=== PATIENT | female | born 1965 | race Caucasian/White ===

== ENCOUNTER 2024-03-26 16:00 | Outpatient (CLI) | payer BC, SELFPAY ==
--- NOTE | 2024-03-26 16:01 | MR_ITS ---
FINAL REPORT CLINICAL HISTORY: lumbar spinal pain COMPARISON: None FINDINGS: Multiplanar MR imaging of the lumbar spine was performed without contrast. On the sagittal T2-weighted images, disc degeneration is seen at multiple levels. There is mild anterolisthesis of L2 on L3, and L4 on L5. There is no evidence of fracture. No bony mass is identified. The conus has an unremarkable appearance. L1-2: An annular bulge is present with facet arthropathy. There is mild left neural foraminal narrowing. L2-3: An annular bulge is present with facet arthropathy. There is a small left foraminal disc protrusion, with mild left neural foraminal narrowing. L3-4: An annular bulge is present with facet arthropathy. There is mild bilateral neural foraminal narrowing. L4-5: An annular bulge is present with facet arthropathy. There is moderate bilateral neural foraminal narrowing. L5-S1: An annular bulge is present. There is no significant canal stenosis or neural foraminal narrowing. IMPRESSION: Multilevel degenerative disc disease and spondylosis as described. Reviewed, Interpreted and Dictated by Ferny Gan III, MD Transcribed by Desire Barreto Authenticated and . [facility]
== END 2024-03-26 23:59 | disposition home or self-care (01) ==
LOC: RAD 16:01
PROVIDERS: PCP Nurse Practitioner Family; Visit Provider Nurse Practitioner Family
DX: M54.50 Low back pain, unspecified (principal); G89.29 Other chronic pain
CPT/HCPCS: 72148

== ENCOUNTER 2024-03-27 14:46 | Outpatient (POV) | payer BC, SELFPAY ==
--- NOTE | 2024-03-27 15:15 | A.OFFVIS_ITS ---
HPI Data of Consult Patient: new to practice Consult date: 03/27/24 Requesting Physician: Ann Marie Costa APRN Primary Care Provider: Sobia Mcneil APRN Consult Narrative Reason for consult: Low back pain History of present illness: Ms. Barnes is a 58 year old female who presents today as a new patient. She is a referral from Kavita Acharya's office. Today she rates her pain an 8 out of 10. Patient states her pain is all throughout her low back with radiating symptoms into primarily her right leg however she will occasionally have left leg symptoms. Patient states this is been going on for years since an injury where she fell down the steps in 1997. Patient does describe her pain as an aching, throbbing sensation with numbness and tingling into her extremities. Patient does state that she has tried [id number] medications such as Tylenol and ibuprofen along with heat and ice and topicals with no additional relief. Patient states that she has had injections in the past but it has been years and that they did typically help however were very temporary. Patient has also had physical therapy and had no additional relief. Patient is currently going to chiropractor therapy and feels like this may be aggravating her symptoms. Patient does go once a week and has gone for more than 4 weeks. Patient is interested in any help we may be able to provide. She states the pain is constant and interferes with her activities of daily living such as cooking or cleaning or even simple sleeping. Patient does state that she has been tried on Flexeril however it did not really seem to do well and that she slept for hours on end. Patient states that it was even cut in half when she took it. Patient denies any surgery history. 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 Patient is not on any scheduled medications. Her Grabiel has been reviewed and is appropriate. CC: Ann Marie Costa APRN [facility] Disclaimer: The information contained in this section may have been updated after the patient was seen, as this information can be updated by other users. Medical History Back pain Alpha thalassaemia minor Hidradenitis suppurativa of multiple sites Cardiac abnormality Hypertension Surgical History History of tubal ligation [place] teeth extracted Family History Family/Other PVCs (premature ventricular contractions) Congestive heart failure Hypertension Diabetes Coronary artery disease Thyroid disorder Kidney disease Social History Smoking Status: Former smoker alcohol intake: current alcohol intake frequency: a few times a week substance use type: denies use current occupational status: retired Travel in the last 8 weeks: Inside the [place] Review of Systems Review of Systems Review of systems:: pertinent systems reviewed and negative unless documented below Review of systems (narrative): Review of Systems: General: No recent weight changes, no fever, no sleep disturbances Respiratory: No cough, no shortness of air, no recurring pulmonary infections Cardiovascular/peripheral vascular: No chest pain, no palpitations, no edema, no shortness of breath Gastrointestinal: No new onset incontinence, normal bowel movements reported Genitourinary: No new onset incontinence Musculoskeletal: Low back pain, right leg pain Psychiatric: [Normal mood/affect] Neurological: [Denies weakness in extremities], [denies balance issues] Meds Home Medications and Allergies Home Medications Medication Instructions Recorded Confirmed Type krill oil 500 mg capsule mg PO 07/27/23 03/05/24 History multivitamin with minerals-folic tab PO 07/27/23 03/05/24 History acid 0.4 mg tablet (One Daily Womens 50 Plus) omeprazole 20 mg capsule,delayed 20 mg PO DAILY 07/27/23 03/05/24 History release rhubarb root extract 4 mg tablet mg PO 07/27/23 03/05/24 History (Estroven Complete Menopause Relief) atenolol 50 mg tablet See Rx Instructions .Route 01/07/24 03/05/24 Rx .COMPLEX #90 tabs lisinopril 10 mg tablet See Rx Instructions .Route 01/22/24 03/05/24 Rx .COMPLEX #90 tabs trazodone 50 mg tablet See Rx Instructions .Route 02/04/24 03/05/24 Rx .COMPLEX #30 tabs cyclobenzaprine 10 mg tablet 10 mg PO TID PRN muscle spasm #30 03/05/24 03/05/24 Rx tabs methylprednisolone 4 mg tablets in 4 mg PO DAILY #21 tabs 03/05/24 03/05/24 Rx a dose pack (Medrol (Michael)) New Prescriptions to Start Prescriptions: Allergies Allergy/AdvReac Type Severity Reaction Status Date / Time bacitracin Allergy Verified 03/05/24 13:34 [From Neosporin ([id number])] diphenhydramine Allergy Verified 03/05/24 13:34 [From Benadryl] neomycin Allergy Verified 03/05/24 13:34 [From Neosporin ([id number])] polymyxin B Allergy Verified 03/05/24 13:34 [From Neosporin ([id number])] prochlorperazine Allergy Verified 03/05/24 13:34 [From Compazine] promethazine [From Phenergan] Allergy Verified 03/05/24 13:34 tetracycline Allergy Verified 03/05/24 13:34 metals AdvReac Uncoded 07/27/23 11:49 Objective Narrative: Physical Exam: General: Alert and oriented x3, no acute distress, pleasant and cooperative Lungs: Respirations even and unlabored, symmetrical chest expansion Eyes: PERRL Musculoskeletal: Flexion and extension of lumbar [spine] somewhat guarded secondary to pain, [antalgic gait noted] Neurological: Speech clear, no gross sensory deficit Assessment and Plan *Assessment and plan (1) Chronic lower back pain: Status: Acute Qualifiers: Back pain laterality: bilateral Sciatica presence: without sciatica Qualified Code(s): M54.50 - Low back pain, unspecified; G89.29 - Other chronic pain Category: Medical Code(s): M54.50 - Low back pain, unspecified; G89.29 - Other chronic pain (2) Lumbar radiculopathy: Status: Acute Category: Medical Code(s): M54.16 - Radiculopathy, lumbar region (3) Lumbar spinal stenosis: Status: Acute Qualifiers: Neurogenic claudication status: with neurogenic claudication Qualified Code(s): M48.062 - Spinal stenosis, lumbar region with neurogenic claudication Category: Medical Code(s): M48.061 - Spinal stenosis, lumbar region without neurogenic claudication Plan Low back and legs with limited range of motion. I did review over her latest MRI that was done yesterday however the written report is not in the computer system yet. Patient did seem to have stenosis most prominent at the L4-L5 level. Due to her overall pain with numbness and tingling into her extremities and the initial imaging I do believe she would be a beneficial candidate of a lumbar epidural steroid injection. Risk and benefits were discussed with the patient and she would like to proceed forward with this plan of care. I will also order the patient a compounded cream. I have discussed with patient in future we could possibly try additional muscle relaxers such as baclofen 5 mg twice a day as needed and provide a 14-day supply of this medication. Patient is agreeable. Patient will be scheduled for an LESI L4-L5 under fluoroscopy. Patient has tried and failed conservative treatment including current chiropractor therapy for longer than 4 weeks and continued at home exercise and stretching for longer than 6. Patient is experiencing significant pain throughout her patient has been instructed to contact the clinic with any concerns before the next appointment. Dr. Mccormick has reviewed this note and agrees with this plan of care. This note was dictated using voice recognition software and make contain errors or omissions.
[2024-03-27 15:30] VITALS: BP 159/93; PULSE 83; RESP 18; O2SAT 96; BMI 44.4
== END 2024-03-27 23:59 | disposition home or self-care (01) ==
LOC: SC.PAIN 14:47
PROVIDERS: PCP Nurse Practitioner Family; Visit Provider Nurse Practitioner Family
DX: M54.50 Low back pain, unspecified (principal); G89.29 Other chronic pain; M54.16 Radiculopathy, lumbar region; M48.062 Spinal stenosis, lumbar region with neurogenic claudication
CPT/HCPCS: 99202; G0463

== ENCOUNTER 2024-04-15 09:28 | Day surgery (SDC) | payer BC, SELFPAY ==
[2024-04-15 09:53] VITALS: BP 126/73; PULSE 65; RESP 16; TEMP 36.4; O2SAT 98; BMI 44.4
[2024-04-15] MEDS: methylPREDNISolone ACETATE 80MG/ML VIAL 80 MG (09:58)
--- NOTE | 2024-04-15 09:59 | EXP.PAIN.PRO ---
Procedure Date: 04/15/24 Time: 09:50 Anesthesiologist:: Jose Miguel Rutherford CRNA Complications:: None Pre-procedure Diagnosis:: Degenerative disc lumbar spine multilevels. Lumbar radiculopathy. Post-procedure Diagnosis:: Same. Indications for Procedure:: Patient is a very pleasant 58-year-old female comes our clinic today for lumbar epidural steroid injection at L4-5 level. Patient describes low back pain as constant, dull, aching. Right hip and leg radicular symptoms. She rates her pain 8/10. Procedure Details:: Procedure: Lumbar epidural steroid injection under fluoroscopy Informed consent was obtained and the risks and benefits of the procedure were explained to the patient. The patient was taken to the procedure room and noninvasive monitors placed, including noninvasive blood pressure cuff and pulse oximeter. The back was viewed using C-arm Fluoroscopy and prepped using Chloraprep as a cleansing solution and the L4-L5 interspace was palpated. Skin and subcutaneous tissues were anesthetized using lidocaine 1.5% and a 25-gauge needle. After this, an 18-gauge Touhy epidural needle was placed into the L4-L5 interspace and advanced using fluoroscopic guidance and loss of resistance to air until the epidural space was encountered. After confirmation of needle placement in the epidural space, with dye, a solution containing normal saline, 3 mL and Depo-Medrol 80 mg were incrementally injected into the lumbar epidural space. The patient tolerated the procedure well with no complications. The patient was observed in the Pain Clinic and then discharged home neurologically intact. Plan and Disposition:: Patient was discharged without incident.
[2024-04-15 10:02] VITALS: BP 118/53; PULSE 60; RESP 20; O2SAT 98
[2024-04-15 10:03] VITALS: BP 118/53; PULSE 60; RESP 20; O2SAT 97
[2024-04-15 10:06] VITALS: BP 145/71; PULSE 60; RESP 16; O2SAT 96
== END 2024-04-15 10:07 | disposition home or self-care (01) ==
PROVIDERS: PCP Nurse Practitioner Family; Visit Provider Nurse Anesthetist, Certified Registered
DX: M54.16 Radiculopathy, lumbar region (principal)
CPT/HCPCS: 62323; J1010

== ENCOUNTER 2024-05-08 11:22 | Outpatient (POV) | payer BC, SELFPAY ==
[2024-05-08 11:23] VITALS: BP 135/85; PULSE 84; RESP 18; O2SAT 98; BMI 44.4
--- NOTE | 2024-05-08 12:09 | EXP.PAIN.SOA ---
[facility] Disclaimer: The information contained in this section may have been updated after the patient was seen, as this information can be updated by other users. Medical History Back pain Alpha thalassaemia minor Hidradenitis suppurativa of multiple sites Cardiac abnormality Hypertension Surgical History History of tubal ligation [place] teeth extracted Family History Family/Other PVCs (premature ventricular contractions) Congestive heart failure Hypertension Diabetes Coronary artery disease Thyroid disorder Kidney disease Social History Smoking Status: Former smoker alcohol intake: current alcohol intake frequency: a few times a week substance use type: denies use current occupational status: other Travel in the last 8 weeks: None PM Subjective & Objective Subjective Subjective:: Patient is a pleasant 58-year-old female who presents today for follow-up of lumbar epidural steroid injection L4-L5 on 04/15/2024. Today she rates her pain a 5 out of 10. Patient states that she has at least had 50% improvement. She denies any new trauma or injury. She does state that it is still fairly constant or with increased activity however the pain is definitely not as severe as it had been. Patient states she felt like she could do However they did go on vacation and when she came back she had to unpack things and they were doing a home remodel and so she had to do more things around the house causing increased pain. Patient was ordered compounded cream and she states that she really did not notice a whole lot improvement on her back and that the baclofen we ordered a 5 mg was too strong for her and completely had her sleep throughout the night. Patient is asking if we could try something different. She does also state that she continues to have chronic leg cramps more prominent at night. Her Grabiel has been reviewed and is appropriate. Review of Systems: General: No recent weight changes, no fever, no sleep disturbances Respiratory: No cough, no shortness of air, no recurring pulmonary infections Cardiovascular/peripheral vascular: No chest pain, no palpitations, no edema, no shortness of breath Gastrointestinal: No new onset incontinence, normal bowel movements reported Genitourinary: No new onset incontinence Musculoskeletal: Leg pain Psychiatric: [Normal mood/affect] Neurological: [Denies weakness in extremities], [denies balance issues] Pain at rest (0-10 scale): 5 Objective Objective:: Physical Exam: General: Alert and oriented x3, no acute distress, pleasant and cooperative Lungs: Respirations even and unlabored, symmetrical chest expansion Eyes: PERRL Musculoskeletal: Flexion and extension of lumbar [spine] somewhat guarded secondary to pain, [antalgic gait noted] Neurological: Speech clear, no gross sensory deficit Has patient had previous pain injection?: Yes Percent improvement in pain since last injection: 50% Conservative treatment options previously tried: Home exercise plan Length of treatment: Longer than 6 weeks Meds Home Medications and Allergies Home Medications ?Medication ?Instructions ?Recorded ?Confirmed ?Type krill oil 500 mg capsule 500 mg PO DIRECTED SUPPLIMENT 07/27/23 04/15/24 History multivitamin with minerals-folic 0.4 tab PO DAILY SUPPLIMENT 07/27/23 04/15/24 History acid 0.4 mg tablet (One Daily Womens 50 Plus) omeprazole 20 mg capsule,delayed 20 mg PO DAILY 07/27/23 04/15/24 History release rhubarb root extract 4 mg tablet 4 mg PO DIRECTED SUPPLIMENT 07/27/23 04/15/24 History (Estroven Complete Menopause Relief) atenolol 50 mg tablet See Rx Instructions .Route 01/07/24 04/15/24 Rx .COMPLEX #90 tabs lisinopril 10 mg tablet See Rx Instructions .Route 01/22/24 04/15/24 Rx .COMPLEX #90 tabs cyclobenzaprine 10 mg tablet 10 mg PO TID PRN muscle spasm #30 03/05/24 04/15/24 Rx tabs trazodone 50 mg tablet See Rx Instructions .Route 05/05/24 Rx .COMPLEX #30 tabs New Prescriptions to Start Prescriptions: Allergies Allergy/AdvReac Type Severity Reaction Status Date / Time bacitracin Allergy Verified 04/15/24 09:53 [From Neosporin ([id number])] diphenhydramine Allergy Verified 04/15/24 09:53 [From Benadryl] neomycin Allergy Verified 04/15/24 09:53 [From Neosporin ([id number])] polymyxin B Allergy Verified 04/15/24 09:53 [From Neosporin ([id number])] prochlorperazine Allergy Verified 04/15/24 09:53 [From Compazine] promethazine [From Phenergan] Allergy Verified 04/15/24 09:53 tetracycline Allergy Verified 04/15/24 09:53 metals AdvReac Uncoded 07/27/23 11:49 Assessment and Plan *Assessment and plan (1) Lumbar radiculopathy: Status: Acute Category: Medical Code(s): M54.16 - Radiculopathy, lumbar region Plan I discussed with the patient that she may benefit from ropinirole for her leg cramps at night. I will send in a 2-week dose of this medication and will also change her muscle relaxer to methocarbamol 500 mg twice daily as needed. Patient was counseled to take these medications at different times in order to make sure that she does not have a reaction to 1 or the other. Patient will return to clinic in 1 month for reevaluation of symptoms and plan of care. Patient has been instructed to contact the clinic with any concerns before the next appointment. Dr. Mccormick has reviewed this note and agrees with this plan of care. This note was dictated using voice recognition software and make contain errors or omissions. All injections are used with Lidocaine or Bupivacaine and Depo Medrol.
== END 2024-05-08 23:59 | disposition home or self-care (01) ==
PROVIDERS: PCP Nurse Practitioner Family; Visit Provider Nurse Practitioner Family
DX: M54.16 Radiculopathy, lumbar region (principal); Z87.891 Personal history of nicotine dependence
CPT/HCPCS: 99212; G0463

== ENCOUNTER 2024-05-27 15:37 | Outpatient (CLI) | payer BC, SELFPAY ==
[2024-05-27 19:45] LABS: Hemoglobin A1C 5.9 % (4.0-6.0)
[2024-05-27 23:08] LABS: Vitamin B12 476 pg/mL (239-931)
== END 2024-05-27 23:59 | disposition home or self-care (01) ==
LOC: LAB.DROPOF 05-28 13:13
PROVIDERS: PCP Nurse Practitioner Family; Visit Provider Nurse Practitioner Family
DX: R63.5 Abnormal weight gain (principal); Z68.41 Body mass index [BMI] 40.0-44.9, adult
CPT/HCPCS: 82607; 82728; 83036; 84443

== ENCOUNTER 2024-06-09 13:03 | Outpatient (POV) | payer BC, SELFPAY ==
[2024-06-09 13:23] VITALS: BP 138/62; PULSE 64; RESP 16; O2SAT 96; BMI 44.4
--- NOTE | 2024-06-09 14:28 | EXP.PAIN.SOA ---
[facility] Disclaimer: The information contained in this section may have been updated after the patient was seen, as this information can be updated by other users. Medical History Back pain Alpha thalassaemia minor Hidradenitis suppurativa of multiple sites Cardiac abnormality Hypertension Surgical History History of tubal ligation [place] teeth extracted Family History Family/Other PVCs (premature ventricular contractions) Congestive heart failure Hypertension Diabetes Coronary artery disease Thyroid disorder Kidney disease Social History Smoking Status: Former smoker alcohol intake: current alcohol intake frequency: a few times a week substance use type: denies use current occupational status: unemployed Travel in the last 8 weeks: None PM Subjective & Objective Subjective Subjective:: Patient is a pleasant 58-year-old female who presents today for follow-up. Today she rates her pain an 8 out of 10. Patient states she has been experiencing worsening pain all along her low back and bilateral hips with the right side being worse than the left. Patient denies any new trauma or injury. She does state this is an aching, throbbing pain with pressure that does interfere with her ability perform activities of daily living such as cooking and cleaning. Patient did previously have a lumbar epidural injection back at the beginning of April that did provide more than 50% improvement. Patient is interested in additional injection therapy. Patient was tried on baclofen 5 mg however she felt like that was too strong so at her last visit she was given methocarbamol 500 mg twice a day as needed. Patient states she has not yet needed to take this medicine. Her Grabiel has been reviewed and is appropriate. Review of Systems: General: No recent weight changes, no fever, no sleep disturbances Respiratory: No cough, no shortness of air, no recurring pulmonary infections Cardiovascular/peripheral vascular: No chest pain, no palpitations, no edema, no shortness of breath Gastrointestinal: No new onset incontinence, normal bowel movements reported Genitourinary: No new onset incontinence Musculoskeletal: Low back pain, bilateral hip pain Psychiatric: [Normal mood/affect] Neurological: [Denies weakness in extremities], [denies balance issues] Pain at rest (0-10 scale): 8 Objective Objective:: Physical Exam: General: Alert and oriented x3, no acute distress, pleasant and cooperative Lungs: Respirations even and unlabored, symmetrical chest expansion Eyes: PERRL Musculoskeletal: Flexion and extension of lumbar [spine] somewhat guarded secondary to pain, [antalgic gait noted] point tenderness along bilateral SIs with positive bilateral Gaurang's, Shital's, Gaenslen's, compression and distraction exam Neurological: Speech clear, no gross sensory deficit Has patient had previous pain injection?: No Conservative treatment options previously tried: Home exercise plan Length of treatment: Longer than 12 weeks Meds Home Medications and Allergies Home Medications ?Medication ?Instructions ?Recorded ?Confirmed ?Type krill oil 500 mg capsule 500 mg PO DIRECTED SUPPLIMENT 07/27/23 06/09/24 History multivitamin with minerals-folic 0.4 tab PO DAILY SUPPLIMENT 07/27/23 06/09/24 History acid 0.4 mg tablet (One Daily Womens 50 Plus) omeprazole 20 mg capsule,delayed 20 mg PO DAILY 07/27/23 06/09/24 History release rhubarb root extract 4 mg tablet 4 mg PO DIRECTED SUPPLIMENT 07/27/23 06/09/24 History (Estroven Complete Menopause Relief) atenolol 50 mg tablet See Rx Instructions .Route 01/07/24 06/09/24 Rx .COMPLEX #90 tabs lisinopril 10 mg tablet See Rx Instructions .Route 01/22/24 06/09/24 Rx .COMPLEX #90 tabs trazodone 50 mg tablet See Rx Instructions .Route 05/05/24 06/09/24 Rx .COMPLEX #30 tabs methocarbamol 500 mg tablet 500 mg PO BID #28 tabs 05/08/24 06/09/24 Rx ondansetron HCl 4 mg tablet 4 mg PO Q8H PRN nausea and 05/27/24 06/09/24 Rx vomiting #30 tabs semaglutide (weight loss) 0.25 0.25 mg (0.5 mL) SQ WEEKLY 30 days 05/27/24 06/09/24 Rx mg/0.5 mL subcutaneous pen #2.5 mL injector (Sarika) New Prescriptions to Start Prescriptions: Allergies Allergy/AdvReac Type Severity Reaction Status Date / Time bacitracin Allergy Verified 05/27/24 14:25 [From Neosporin ([id number])] diphenhydramine Allergy Verified 05/27/24 14:25 [From Benadryl] neomycin Allergy Verified 05/27/24 14:25 [From Neosporin ([id number])] polymyxin B Allergy Verified 05/27/24 14:25 [From Neosporin ([id number])] prochlorperazine Allergy Verified 05/27/24 14:25 [From Compazine] promethazine [From Phenergan] Allergy Verified 05/27/24 14:25 tetracycline Allergy Verified 05/27/24 14:25 metals AdvReac Uncoded 05/27/24 14:25 Assessment and Plan *Assessment and plan (1) Bilateral sacroiliitis: Status: Acute Category: Medical Code(s): M46.1 - Sacroiliitis, not elsewhere classified Plan Patient is experiencing significant pain throughout her low back and bilateral hips with limited range of motion. Patient did have point tenderness along her bilateral SIs and a positive bilateral Gaurang's, Shital's, Gaenslen's, compression and distraction exam. I did discuss with the patient that she may benefit from bilateral SI injections. Risk and benefits were discussed with the patient and she would like to proceed forward with this plan of care. Patient has continued at home stretching exercise for longer than 6 weeks. Patient will be scheduled for bilateral SI injections under fluoroscopy. Patient has been instructed to contact the clinic with any concerns before the next appointment. Dr. Mccormick has reviewed this note and agrees with this plan of care. This note was dictated using voice recognition software and make contain errors or omissions. All injections are used with Lidocaine or Bupivacaine and Depo Medrol.
== END 2024-06-09 23:59 | disposition home or self-care (01) ==
LOC: SC.PAIN 13:04
PROVIDERS: PCP Nurse Practitioner Family; Visit Provider Nurse Practitioner Family
DX: M46.1 Sacroiliitis, not elsewhere classified (principal); Z87.891 Personal history of nicotine dependence; Z73.89 Other problems related to life management difficulty
CPT/HCPCS: 99212; G0463

== ENCOUNTER 2024-07-01 12:50 | Day surgery (SDC) | payer BC, SELFPAY ==
[2024-07-01 13:28] VITALS: BP 128/68; PULSE 67; RESP 16; TEMP 36.4; O2SAT 97; BMI 43.2
[2024-07-01 13:34] VITALS: BP 110/41; PULSE 66; RESP 18; O2SAT 96
[2024-07-01] MEDS: methylPREDNISolone ACETATE 80MG/ML VIAL 80 MG (13:34)
[2024-07-01] MEDS: LIDOCAINE 1% 5ML PF VIAL 5 ML (13:34)
[2024-07-01] MEDS: BUPIVACAINE 0.25% 10ML INJ 25 MG IJ (13:34)
[2024-07-01 13:35] VITALS: BP 110/41; PULSE 65; RESP 18; O2SAT 96
--- NOTE | 2024-07-01 13:40 | P.PCN_ITS ---
Procedure Date: 07/01/24 Time: 13:30 Anesthesiologist:: Jose Miguel Rutherford CRNA Complications:: None Pre-procedure Diagnosis:: Bilateral sacroiliitis Post-procedure Diagnosis:: Same Indications for Procedure:: Patient is a very pleasant 58-year-old female comes our clinic today for bilateral sacroiliac joint injections of cortisone and local anesthetic. She describes low lumbar back pain off the midline as constant, dull, aching. She reports having difficulty transitioning from sitting to standing. Difficulty with ambulation. Difficulty with sitting. She rates her pain 7/10. Procedure Details:: Procedure: Bilateral sacroiliac joint injections under fluoroscopy Informed consent was obtained and the risks and benefits of the procedure were explained to the patient.~ The patient was taken to the procedure room and noninvasive monitors were placed including a noninvasive blood pressure cuff and pulse oximeter.~ The patient was placed prone on the procedure table. Both hips were cleansed using Betadine as a cleansing solution. C-arm fluoroscopy was used to view the right sacroiliac joint.~ The skin and subcutaneous tissues were anesthetized using lidocaine 1.5% and a 25-gauge needle.~ After this, a 22-gauge spinal needle was inserted under fluoroscopic guidance into the inferior aspect of the right sacroiliac joint.~ Omnipaque dye was injected and good spread was seen throughout the joint.~ After this, approximately 5 mL of bupivacaine, 0.25% and Depo-Medrol, 40 mg was incrementally injected into the right sacroiliac joint. We then moved to the left sacroiliac joint.~ The skin and subcutaneous tissues were anesthetized using lidocaine 1.5% and a 25-gauge needle.~ After this, a 22- gauge spinal needle was inserted under fluoroscopic guidance into the inferior aspect of the left sacroiliac joint.~ Omnipaque dye was injected and good spread was seen throughout the joint. After this, approximately 5 mL of bupivacaine, 0.25% and Depo-Medrol, 40 mg was incrementally injected into the left sacroiliac joint.~ The patient tolerated the procedure well with no complications. The patient was observed in the Pain Clinic and then was discharged home neurologically intact. Plan and Disposition:: Patient was discharged without incident.
[2024-07-01 13:52] VITALS: BP 107/62; PULSE 64; RESP 18; O2SAT 98
== END 2024-07-01 13:52 | disposition home or self-care (01) ==
PROVIDERS: PCP Nurse Practitioner Family; Visit Provider Nurse Anesthetist, Certified Registered
DX: M46.1 Sacroiliitis, not elsewhere classified (principal)
CPT/HCPCS: 27096; G0260; J1010

== ENCOUNTER 2024-08-04 11:31 | Outpatient (POV) | payer BC, SELFPAY ==
[2024-08-04 11:44] VITALS: BP 156/83; PULSE 71; O2SAT 96; BMI 41.9
--- NOTE | 2024-08-04 11:53 | EXP.PAIN.SOA ---
[facility] Disclaimer: The information contained in this section may have been updated after the patient was seen, as this information can be updated by other users. Medical History Back pain Alpha thalassaemia minor Hidradenitis suppurativa of multiple sites Cardiac abnormality Hypertension Surgical History History of tubal ligation [place] teeth extracted Family History Family/Other PVCs (premature ventricular contractions) Congestive heart failure Hypertension Diabetes Coronary artery disease Thyroid disorder Kidney disease Social History Smoking Status: Former smoker alcohol intake: current alcohol intake frequency: a few times a week substance use type: denies use current occupational status: unemployed Travel in the last 8 weeks: None PM Subjective & Objective Subjective Subjective:: Patient is a pleasant 58-year-old female who presents today for follow-up of bilateral SI injections on 07/01/2024. Today she rates her pain an 8 out of 10. Patient denies any new trauma or injury. Patient states that she really did not feel like these injections helped. Patient states she is still continuing to have low back pain and now that she is having an intense stabbing sensation that runs down her entire lower extremities to her ankles. Patient states that the pain is interfering with her ability perform activities of daily living such as cooking and cleaning. Patient did previously have an epidural that did provide significant relief of at least 50% lasting around 2 weeks. Patient does state that she is open to additional injections such as these however the last ones did seem like they hurt worse. Patient has tried and failed conservative therapy including continued at home stretching exercise for longer than 12 weeks. Patient is currently managed with methocarbamol 500 mg twice a day from our office however she does not take this on a regular basis. Her Grabiel has been reviewed and is appropriate. Review of Systems: General: No recent weight changes, no fever, no sleep disturbances Respiratory: No cough, no shortness of air, no recurring pulmonary infections Cardiovascular/peripheral vascular: No chest pain, no palpitations, no edema, no shortness of breath Gastrointestinal: No new onset incontinence, normal bowel movements reported Genitourinary: No new onset incontinence Musculoskeletal: Low back pain, bilateral leg pain Psychiatric: [Normal mood/affect] Neurological: [Denies weakness in extremities], [denies balance issues] Pain at rest (0-10 scale): 8 Objective Objective:: Physical Exam: General: Alert and oriented x3, no acute distress, pleasant and cooperative Lungs: Respirations even and unlabored, symmetrical chest expansion Eyes: PERRL Musculoskeletal: Flexion and extension of lumbar [spine] somewhat guarded secondary to pain, [antalgic gait noted] Neurological: Speech clear, no gross sensory deficit Has patient had previous pain injection?: Yes Percent improvement in pain since last injection: Minimal Conservative treatment options previously tried: Home exercise plan Length of treatment: Longer than 12 weeks Meds Home Medications and Allergies Home Medications ?Medication ?Instructions ?Recorded ?Confirmed ?Type krill oil 500 mg capsule 500 mg PO DIRECTED SUPPLIMENT 07/27/23 08/04/24 History multivitamin with minerals-folic 0.4 tab PO DAILY SUPPLIMENT 07/27/23 08/04/24 History acid 0.4 mg tablet (One Daily Womens 50 Plus) omeprazole 20 mg capsule,delayed 20 mg PO DAILY 07/27/23 08/04/24 History release trazodone 50 mg tablet See Rx Instructions .Route 05/05/24 08/04/24 Rx .COMPLEX #30 tabs methocarbamol 500 mg tablet 500 mg PO BID #28 tabs 05/08/24 08/04/24 Rx ondansetron HCl 4 mg tablet 4 mg PO Q8H PRN nausea and 05/27/24 08/04/24 Rx vomiting #30 tabs atenolol 50 mg tablet See Rx Instructions .Route 07/07/24 08/04/24 Rx .COMPLEX #90 tabs lisinopril 10 mg tablet See Rx Instructions .Route 07/07/24 08/04/24 Rx .COMPLEX #90 tabs semaglutide (weight loss) 1 mg/0.5 1 mg (0.5 mL) SQ WEEKLY 30 days 07/30/24 08/04/24 Rx mL subcutaneous pen injector #2.5 mL New Prescriptions to Start Prescriptions: Allergies Allergy/AdvReac Type Severity Reaction Status Date / Time bacitracin Allergy Verified 07/30/24 13:00 [From Neosporin ([id number])] diphenhydramine Allergy Verified 07/30/24 13:00 [From Benadryl] neomycin Allergy Verified 07/30/24 13:00 [From Neosporin ([id number])] polymyxin B Allergy Verified 07/30/24 13:00 [From Neosporin ([id number])] prochlorperazine Allergy Verified 07/30/24 13:00 [From Compazine] promethazine [From Phenergan] Allergy Verified 07/30/24 13:00 tetracycline Allergy Verified 07/30/24 13:00 metals AdvReac Uncoded 07/30/24 13:00 Assessment and Plan *Assessment and plan (1) Lumbar radiculopathy: Status: Acute Category: Medical Code(s): M54.16 - Radiculopathy, lumbar region (2) Lumbar spinal stenosis: Status: Acute Qualifiers: Neurogenic claudication status: with neurogenic claudication Qualified Code(s): M48.062 - Spinal stenosis, lumbar region with neurogenic claudication Category: Medical Code(s): M48.061 - Spinal stenosis, lumbar region without neurogenic claudication Plan Patient is experiencing significant pain throughout her low back with radiating tingling and stabbing sensations that go down into her bilateral lower extremities. I did discuss with the patient that she may benefit from repeat lumbar epidural steroid injection. Risk and benefits were discussed with patient and she would like to proceed forward with this plan of care. Patient has tried and failed conservative therapy including continued home stretching exercise for longer than 12 weeks. Patient is not on any blood thinners. Patient will be scheduled for an LESI L4-L5 under fluoroscopy. Patient has been instructed to contact the clinic with any concerns before the next appointment. Dr. Mccormick has reviewed this note and agrees with this plan of care. This note was dictated using voice recognition software and make contain errors or omissions. All injections are used with Lidocaine or Bupivacaine and Depo Medrol.
== END 2024-08-04 23:59 | disposition home or self-care (01) ==
LOC: SC.PAIN 11:33
PROVIDERS: PCP Nurse Practitioner Family; Visit Provider Nurse Practitioner Family
DX: M54.16 Radiculopathy, lumbar region (principal); M48.062 Spinal stenosis, lumbar region with neurogenic claudication; Z73.89 Other problems related to life management difficulty
CPT/HCPCS: 99212; G0463

== ENCOUNTER 2024-08-19 08:52 | Day surgery (SDC) | payer BC, SELFPAY ==
[2024-08-19 09:05] VITALS: BP 129/74; PULSE 68; RESP 16; TEMP 36.7; O2SAT 95; BMI 41.9
[2024-08-19] MEDS: methylPREDNISolone ACETATE 80MG/ML VIAL 80 MG (09:24)
[2024-08-19 09:25] VITALS: BP 144/72; PULSE 70; RESP 18; O2SAT 96
[2024-08-19 09:26] VITALS: BP 144/72; PULSE 72; RESP 18; O2SAT 96
--- NOTE | 2024-08-19 09:31 | EXP.PAIN.PRO ---
Procedure Date: 08/19/24 Time: 09:15 Anesthesiologist:: Jose Miguel Rutherford CRNA Complications:: None Pre-procedure Diagnosis:: Degenerative disc lumbar spine multilevels. Lumbar radiculopathy. Post-procedure Diagnosis:: Same. Indications for Procedure:: Patient is a pleasant 58-year-old female who comes our clinic today for lumbar epidural steroid injection at the L4-5 level. Patient describes low lumbar back pain as constant, dull, aching. Patient also reports bilateral hip and leg radicular symptoms. She rates her pain 7/10. Procedure Details:: Procedure: Lumbar epidural steroid injection under fluoroscopy Informed consent was obtained and the risks and benefits of the procedure were explained to the patient. The patient was taken to the procedure room and noninvasive monitors placed, including noninvasive blood pressure cuff and pulse oximeter. The back was viewed using C-arm Fluoroscopy and prepped using Chloraprep as a cleansing solution and the L4-L5 interspace was palpated. Skin and subcutaneous tissues were anesthetized using lidocaine 1.5% and a 25-gauge needle. After this, an 18-gauge Touhy epidural needle was placed into the L4-L5 interspace and advanced using fluoroscopic guidance and loss of resistance to air until the epidural space was encountered. After confirmation of needle placement in the epidural space, with dye, a solution containing normal saline, 3 mL and Depo-Medrol 80 mg were incrementally injected into the lumbar epidural space. The patient tolerated the procedure well with no complications. The patient was observed in the Pain Clinic and then discharged home neurologically intact. Plan and Disposition:: Patient was discharged without incident.
[2024-08-19 09:33] VITALS: BP 114/72; PULSE 69; RESP 16; O2SAT 99
== END 2024-08-19 09:33 | disposition home or self-care (01) ==
PROVIDERS: PCP Nurse Practitioner Family; Visit Provider Nurse Anesthetist, Certified Registered
DX: M51.16 Intervertebral disc disorders with radiculopathy, lumbar region (principal)
CPT/HCPCS: 62323; J1010

== ENCOUNTER 2024-09-03 09:26 | Outpatient (POV) | payer BC, SELFPAY ==
--- NOTE | 2024-09-03 09:53 | A.OFFVIS_ITS ---
[facility] Disclaimer: The information contained in this section may have been updated after the patient was seen, as this information can be updated by other users. Medical History Back pain Alpha thalassaemia minor Hidradenitis suppurativa of multiple sites Cardiac abnormality Hypertension Surgical History History of tubal ligation [place] teeth extracted Family History Family/Other PVCs (premature ventricular contractions) Congestive heart failure Hypertension Diabetes Coronary artery disease Thyroid disorder Kidney disease Social History Smoking Status: Former smoker alcohol intake: current alcohol intake frequency: a few times a week substance use type: denies use current occupational status: other Travel in the last 8 weeks: None PM Subjective & Objective Subjective Subjective:: Patient is a pleasant 58-year-old female who presents today for follow-up of lumbar epidural steroid injection L4-L5 on 08/19/2024. She rates her pain today a 7 out of 10. Patient states that she really did not have significant relief with these injections. She states only about maybe 20%. She does states she continues to have the chronic low back pain that radiates across to her back and that she has been experiencing more cramps in her lower calves and legs however it has moved into the front and inner lee area. Patient states that this pain is most prominent just at night and does interfere with her ability to sleep. Patient does state that the chronic low back pain does interfere with her ability to perform activities of daily living such as cooking and cleaning. Patient does state that the pain is worse with certain positions or movements. Patient states that she just got back from vacation and that this may have aggravated the overall symptoms. Patient is currently managed with methocarbamol 500 mg twice a day from our office however she only uses these as needed. Her Grabiel has been reviewed and is appropriate. Review of Systems: General: No recent weight changes, no fever, no sleep disturbances Respiratory: No cough, no shortness of air, no recurring pulmonary infections Cardiovascular/peripheral vascular: No chest pain, no palpitations, no edema, no shortness of breath Gastrointestinal: No new onset incontinence, normal bowel movements reported Genitourinary: No new onset incontinence Musculoskeletal: Low back pain, lower leg cramping Psychiatric: [Normal mood/affect] Neurological: [Denies weakness in extremities], [denies balance issues] Pain at rest (0-10 scale): 7 Objective Objective:: Physical Exam: General: Alert and oriented x3, no acute distress, pleasant and cooperative Lungs: Respirations even and unlabored, symmetrical chest expansion Eyes: PERRL Musculoskeletal: Flexion and extension of lumbar [spine] somewhat guarded secondary to pain, [antalgic gait noted] positive Kemps test Neurological: Speech clear, no gross sensory deficit FINDINGS: Multiplanar MR imaging of the lumbar spine was performed without contrast. On the sagittal T2-weighted images, disc degeneration is seen at multiple levels. There is mild anterolisthesis of L2 on L3, and L4 on L5. There is no evidence of fracture. No bony mass is identified. The conus has an unremarkable appearance. L1-2: An annular bulge is present with facet arthropathy. There is mild left neural foraminal narrowing. L2-3: An annular bulge is present with facet arthropathy. There is a small left foraminal disc protrusion, with mild left neural foraminal narrowing. L3-4: An annular bulge is present with facet arthropathy. There is mild bilateral neural foraminal narrowing. L4-5: An annular bulge is present with facet arthropathy. There is moderate bilateral neural foraminal narrowing. L5-S1: An annular bulge is present. There is no significant canal stenosis or neural foraminal narrowing. IMPRESSION: Multilevel degenerative disc disease and spondylosis as described. Reviewed, Interpreted and Dictated by Ferny Gan III, MD Transcribed by Desire Barreto Authenticated and . [facility] Has patient had previous pain injection?: Yes Percent improvement in pain since last injection: 20% Conservative treatment options previously tried: Home exercise plan Length of treatment: Longer than 12 weeks Meds Home Medications and Allergies Home Medications ?Medication ?Instructions ?Recorded ?Confirmed ?Type krill oil 500 mg capsule 500 mg PO DIRECTED SUPPLIMENT 07/27/23 08/25/24 History multivitamin with minerals-folic 0.4 tab PO DAILY SUPPLIMENT 07/27/23 08/25/24 History acid 0.4 mg tablet (One Daily Womens 50 Plus) omeprazole 20 mg capsule,delayed 20 mg PO DAILY 07/27/23 08/25/24 History release methocarbamol 500 mg tablet 500 mg PO BID #28 tabs 05/08/24 08/25/24 Rx ondansetron HCl 4 mg tablet 4 mg PO Q8H PRN nausea and 05/27/24 08/25/24 Rx vomiting #30 tabs atenolol 50 mg tablet See Rx Instructions .Route 07/07/24 08/25/24 Rx .COMPLEX #90 tabs lisinopril 10 mg tablet See Rx Instructions .Route 07/07/24 08/25/24 Rx .COMPLEX #90 tabs trazodone 50 mg tablet See Rx Instructions .Route 08/08/24 08/25/24 Rx .COMPLEX #30 tabs semaglutide (weight loss) 1 mg/0.5 1 mg (0.5 mL) SQ WEEKLY 30 days 08/25/24 08/25/24 Rx mL subcutaneous pen injector #2.5 mL New Prescriptions to Start Prescriptions: Allergies Allergy/AdvReac Type Severity Reaction Status Date / Time bacitracin (From Neosporin Allergy Verified 08/25/24 09:49 ([id number])) diphenhydramine (From Allergy Verified 08/25/24 09:49 Benadryl) neomycin (From Neosporin Allergy Verified 08/25/24 09:49 ([id number])) polymyxin B (From Neosporin Allergy Verified 08/25/24 09:49 ([id number])) prochlorperazine (From Allergy Verified 08/25/24 09:49 Compazine) promethazine (From Phenergan) Allergy Verified 08/25/24 09:49 tetracycline Allergy Verified 08/25/24 09:49 metals AdvReac Uncoded 08/25/24 09:49 Assessment and Plan *Assessment and plan (1) Lumbar facet arthropathy: Status: Acute Category: Medical Code(s): M47.816 - Spondylosis without myelopathy or radiculopathy, lumbar region (2) Lumbar spondylosis: Status: Acute Category: Medical Code(s): M47.816 - Spondylosis without myelopathy or radiculopathy, lumbar region Plan Patient is experiencing worsening pain throughout her low back with limited range of motion and a positive Kemps test today. I did discuss with the patient that due to this assessment finding being positive that she may benefit from lumbar medial branch blocks. Risk and benefits were discussed with patient and she would like to proceed forward with this plan of care. Patient has tried and failed conservative therapy including oral medications, heat and ice, topicals, previous physical therapy and continued at home stretching exercise for longer than 12 weeks. Patient was counseled that if these do provide significant improvement we will plan on repeating them with the plan to proceed forward with an RFA at a later date. I will also try a prescription of ropinirole 0.25 mg at bedtime with a 2-week supply to see if this does make a difference on her lower leg cramping she has been experiencing. Patient will be scheduled for a lumbar medial branch block bilaterally L3-L4 and L4-L5 under fluoroscopy. Patient has been instructed to contact the clinic with any concerns before the next appointment. Dr. Mccormick has reviewed this note and agrees with this plan of care. This note was dictated using voice recognition software and make contain errors or omissions. All injections are used with Lidocaine or Bupivacaine and Depo Medrol.
[2024-09-03 10:25] VITALS: BP 126/62; PULSE 77; RESP 18; O2SAT 95; BMI 40.6
== END 2024-09-03 23:59 | disposition home or self-care (01) ==
PROVIDERS: PCP Nurse Practitioner Family; Visit Provider Nurse Practitioner Family
DX: M47.816 Spondylosis without myelopathy or radiculopathy, lumbar region (principal); Z73.89 Other problems related to life management difficulty
CPT/HCPCS: 99212; G0463

== ENCOUNTER 2024-09-29 11:36 | Outpatient (RCR) | payer BC, SELFPAY | END 2024-09-29 23:59 | disposition home or self-care (01) | LOC: PT 11:36 | PROVIDERS: Visit Provider Nurse Practitioner Family | DX: M25.562 Pain in left knee (principal); S89.92XA Unspecified injury of left lower leg, initial encounter | CPT/HCPCS: 97760 ==

== ENCOUNTER 2024-09-29 12:13 | Outpatient (CLI) | payer BC, SELFPAY ==
--- NOTE | 2024-09-29 12:17 | XR_ITS ---
FINAL REPORT CLINICAL HISTORY: left hip pain, injury FINDINGS: LEFT HIP 3 views of the left hip are obtained. There is no acute fracture or dislocation. Visualized joint spaces are normally aligned. There is no acute soft tissue abnormality. IMPRESSION: No acute bony abnormality. Reviewed, Interpreted and Dictated by Lula Pathak MD Transcribed by Tara Bernard Authenticated and [facility]
--- NOTE | 2024-09-29 12:17 | XR_ITS ---
FINAL REPORT CLINICAL HISTORY: left knee pain, injury FINDINGS: LEFT KNEE: 3 views of the left knee obtained. There is no acute fracture or dislocation. The joint spaces are intact.. There is no soft tissue abnormality. IMPRESSION: No acute bony abnormality. Reviewed, Interpreted and Dictated by Lula Pathak MD Transcribed by Tara Bernard Authenticated and [facility]
== END 2024-09-29 23:59 | disposition home or self-care (01) ==
LOC: RAD 12:15
PROVIDERS: PCP Nurse Practitioner Family; Visit Provider Nurse Practitioner Family
DX: M25.552 Pain in left hip (principal); M25.562 Pain in left knee; S89.92XA Unspecified injury of left lower leg, initial encounter
CPT/HCPCS: 73502; 73564

== ENCOUNTER 2024-09-30 08:45 | Day surgery (SDC) | payer BC, SELFPAY ==
[2024-09-30 09:00] VITALS: BP 147/85; PULSE 81; RESP 16; TEMP 36.6; O2SAT 95; BMI 40.0
[2024-09-30 09:58] VITALS: BP 144/87; PULSE 70; RESP 18; O2SAT 96
[2024-09-30] MEDS: LIDOCAINE 1% 5ML PF VIAL 5 ML (09:58)
[2024-09-30] MEDS: methylPREDNISolone ACETATE 80MG/ML VIAL 80 MG (09:58)
[2024-09-30] MEDS: BUPIVACAINE 0.25% 10ML INJ 25 MG IJ (09:58)
[2024-09-30 09:59] VITALS: BP 144/87; PULSE 72; RESP 18; O2SAT 97
[2024-09-30 10:05] VITALS: BP 123/77; PULSE 76; RESP 16; O2SAT 98
--- NOTE | 2024-09-30 12:32 | EXP.PAIN.PRO ---
Procedure Date: 09/30/24 Time: 10:30 Anesthesiologist:: Jose Miguel Rutherford CRNA Complications:: None Pre-procedure Diagnosis:: Degenerative disc lumbar spine multilevels. Lumbar radiculopathy. Lumbar spondylosis. Multilevel lumbar facet arthropathy. Post-procedure Diagnosis:: Same. Indications for Procedure:: Patient is a very pleasant 58-year-old female who comes our clinic today for ROUND ONE of lumbar medial branch block/facet injections the L3-4 L4-5 level. Patient describes low lumbar back pain as constant, dull, aching. She reports having difficulty with lumbar flexion, extension, left and right rotation. Standing increases pain significantly. She rates her pain 7/10. Procedure Details:: Informed consent was obtained and the risk and benefits of the procedure was explained to the patient. Patient was taken to the procedure room where noninvasive monitors were placed, including noninvasive blood pressure cuff as well as pulse oximeter. The area over the lumbar spine was cleansed using chlorhexidine as a cleansing solution. I anesthetized the skin and subcutaneous tissues with 1% Lidocaine. I placed 22-gauge spinal needles into the facet joint/ medial branches of L3-4, L4-5 bilaterally. Needle placement was confirmed with fluoroscopy. After confirmation of needle placement, each site was injected with 1 mL of 1% lidocaine and 0.25 % Marcaine and 10 mg of Depo-Medrol. A total of 80 mg of depo medrol was used for bilateral medial branch blocks of [L3-L4, L4-L5 bilaterally. Patient tolerated the procedure without difficulty. There were no complications. Plan and Disposition:: Patient was discharged without incident.
== END 2024-09-30 10:05 | disposition home or self-care (01) ==
PROVIDERS: PCP Nurse Practitioner Family; Visit Provider Nurse Anesthetist, Certified Registered
DX: M47.816 Spondylosis without myelopathy or radiculopathy, lumbar region (principal); M51.369 Other intervertebral disc degeneration, lumbar region without mention of lumbar back pain or lower extremity pain
CPT/HCPCS: 64493; 64494; J1010

== ENCOUNTER 2024-10-22 09:12 | Outpatient (POV) | payer BC, SELFPAY ==
[2024-10-22 09:38] VITALS: BP 118/78; PULSE 80; RESP 14; O2SAT 96; BMI 39.5
--- NOTE | 2024-10-22 09:41 | EXP.PAIN.SOA ---
[facility] Disclaimer: The information contained in this section may have been updated after the patient was seen, as this information can be updated by other users. Medical History Back pain Alpha thalassaemia minor Hidradenitis suppurativa of multiple sites Cardiac abnormality Hypertension Surgical History History of tubal ligation [place] teeth extracted Family History Family/Other PVCs (premature ventricular contractions) Congestive heart failure Hypertension Diabetes Coronary artery disease Thyroid disorder Kidney disease Social History Smoking Status: Former smoker alcohol intake: current alcohol intake frequency: a few times a week substance use type: denies use current occupational status: other Travel in the last 8 weeks: None PM Subjective & Objective Subjective Subjective:: Patient is a pleasant 58-year-old female who presents today for follow-up of her first lumbar medial branch block bilaterally L3-L4 and L4-L5 under fluoroscopy. Today she rates her pain a 5 out of 10. She does state that she had at least 80% improvement on the first day following this procedure and was able to move around easier and even went and watched her grandkids. She states that it is still helping currently but would rated more of about 60% at this point. She does state however that following this procedure she ended up having a injury. She states she ended up stepping down on the dogs chew toy and that her left leg twisted and ended up having significant pain in the left hip and left knee. Patient is concerned she may have torn something however insurance denied her MRI of her left knee due to not having recent physical therapy. She does state that she is scheduled to start this coming up. Patient is prescribed compounded cream from our office along with methocarbamol 500 mg twice a day and was recently prescribed ropinirole 0.25 mg at bedtime for her leg cramps. Patient states that she did read in the fine print that the ropinirole and her omeprazole may have a interaction and did not know if there is any other medication that could be prescribed. Her Grabiel has been reviewed and is appropriate. Review of Systems: General: No recent weight changes, no fever, no sleep disturbances Respiratory: No cough, no shortness of air, no recurring pulmonary infections Cardiovascular/peripheral vascular: No chest pain, no palpitations, no edema, no shortness of breath Gastrointestinal: No new onset incontinence, normal bowel movements reported Genitourinary: No new onset incontinence Musculoskeletal: Left hip, left knee pain Psychiatric: [Normal mood/affect] Neurological: [Denies weakness in extremities], [denies balance issues] Pain at rest (0-10 scale): 5 Objective Objective:: Physical Exam: General: Alert and oriented x3, no acute distress, pleasant and cooperative Lungs: Respirations even and unlabored, symmetrical chest expansion Eyes: PERRL Musculoskeletal: Flexion and extension of left hip somewhat guarded secondary to pain, [antalgic gait noted] point tenderness along left greater trochanteric bursa Neurological: Speech clear, no gross sensory deficit Has patient had previous pain injection?: Yes Percent improvement in pain since last injection: 80% Conservative treatment options previously tried: Home exercise plan Length of treatment: Longer than 12 weeks Meds Home Medications and Allergies Home Medications ?Medication ?Instructions ?Recorded ?Confirmed ?Type krill oil 500 mg capsule 500 mg PO DIRECTED SUPPLIMENT 07/27/23 10/17/24 History multivitamin with minerals-folic 0.4 tab PO DAILY SUPPLIMENT 07/27/23 10/17/24 History acid 0.4 mg tablet (One Daily Womens 50 Plus) omeprazole 20 mg capsule,delayed 20 mg PO DAILY 07/27/23 10/17/24 History release methocarbamol 500 mg tablet 500 mg PO BID #28 tabs 05/08/24 10/17/24 Rx ondansetron HCl 4 mg tablet 4 mg PO Q8H PRN nausea and 05/27/24 10/17/24 Rx vomiting #30 tabs lisinopril 10 mg tablet See Rx Instructions .Route 07/07/24 10/17/24 Rx .COMPLEX #90 tabs trazodone 50 mg tablet See Rx Instructions .Route 08/08/24 10/17/24 Rx .COMPLEX #30 tabs ropinirole 0.25 mg tablet 0.25 mg PO HS #14 tabs 09/03/24 10/17/24 Rx atenolol 50 mg tablet 50 mg PO ONCE 30 days #30 tabs 09/22/24 10/17/24 Rx semaglutide (weight loss) 1.7 1.7 mg (0.75 mL) SQ WEEKLY 30 days 10/17/24 10/17/24 Rx mg/0.75 mL subcutaneous pen #3.75 mL injector New Prescriptions to Start Prescriptions: Allergies Allergy/AdvReac Type Severity Reaction Status Date / Time bacitracin (From Neosporin Allergy Verified 10/17/24 10:57 ([id number])) diphenhydramine (From Allergy Verified 10/17/24 10:57 Benadryl) neomycin (From Neosporin Allergy Verified 10/17/24 10:57 ([id number])) polymyxin B (From Neosporin Allergy Verified 10/17/24 10:57 ([id number])) prochlorperazine (From Allergy Verified 10/17/24 10:57 Compazine) promethazine (From Phenergan) Allergy Verified 10/17/24 10:57 tetracycline Allergy Verified 10/17/24 10:57 metals AdvReac Uncoded 10/17/24 10:57 Assessment and Plan *Assessment and plan (1) Left hip pain: Status: Acute Category: Medical Code(s): M25.552 - Pain in left hip (2) Left knee injury: Status: Acute Category: Medical Code(s): S89.92XA - Unspecified injury of left lower leg, initial encounter (3) Decreased range of motion of hip: Status: Acute Category: Medical Code(s): M25.659 - Stiffness of unspecified hip, not elsewhere classified (4) Lumbar facet arthropathy: Status: Acute Category: Medical Code(s): M47.816 - Spondylosis without myelopathy or radiculopathy, lumbar region Plan I did discuss with the patient that I would recommend trying her compounded cream on her hip and knee and that in future if this pain does not improve we can see about doing some injection therapy. Patient was also counseled that I was unaware of any interactions between the ropinirole and omeprazole and that I will look at other medication options. I did auto club travel counselor the patient to reach out to her local pharmacy and see if they could give more specific details on the interaction. Patient acknowledges understanding. Patient will follow-up with our clinic in 3 weeks for reevaluation of symptoms and plan of care. Patient has been instructed to contact the clinic with any concerns before the next appointment. Dr. Mccormick has reviewed this note and agrees with this plan of care. This note was dictated using voice recognition software and make contain errors or omissions. All injections are used with Lidocaine, Bupivacaine and Depo Medrol. Occasionally urine drug screen is needed to verify patient's compliance with our office pain contract. This is ordered based off specific treatments related to chronic pain with the potential to abuse certain medications.
== END 2024-10-22 23:59 | disposition home or self-care (01) ==
PROVIDERS: PCP Nurse Practitioner Family; Visit Provider Nurse Practitioner Family
DX: M25.552 Pain in left hip (principal); S89.92XA Unspecified injury of left lower leg, initial encounter; M25.659 Stiffness of unspecified hip, not elsewhere classified; M47.816 Spondylosis without myelopathy or radiculopathy, lumbar region; Z87.891 Personal history of nicotine dependence
CPT/HCPCS: 99212; G0463

== ENCOUNTER 2024-11-05 09:23 | Outpatient (CLI) | payer BC, SELFPAY | END 2024-11-05 23:59 | disposition home or self-care (01) | LOC: RAD 09:23 | PROVIDERS: PCP Nurse Practitioner Family; Visit Provider Nurse Practitioner Family | DX: M25.552 Pain in left hip (principal) ==

== ENCOUNTER 2024-11-12 09:15 | Outpatient (POV) | payer BC, SELFPAY ==
--- NOTE | 2024-11-12 09:47 | A.OFFVIS_ITS ---
[facility] Disclaimer: The information contained in this section may have been updated after the patient was seen, as this information can be updated by other users. Medical History Back pain Alpha thalassaemia minor Hidradenitis suppurativa of multiple sites Cardiac abnormality Hypertension Surgical History History of tubal ligation [place] teeth extracted Family History Family/Other PVCs (premature ventricular contractions) Congestive heart failure Hypertension Diabetes Coronary artery disease Thyroid disorder Kidney disease Social History Smoking Status: Former smoker alcohol intake: current alcohol intake frequency: a few times a week substance use type: denies use current occupational status: other Travel in the last 8 weeks: None PM Subjective & Objective Subjective Subjective:: Patient is a pleasant 59-year-old female who presents today for follow-up. Today she rates her pain a 8 out of 10. She denies any new injury or trauma. She does state that she has now started physical therapy the last couple of ti mes it has caused some worsening pain in her hip and low back. She states overall the knee is doing fairly okay and it is bothersome if she turns a certain way. Patient had had an injury in one of her last visits that initially started the knee pain and was tried to have imaging however was denied by insurance for not having recent physical therapy. Patient did previously have her first lumbar medial branch block bilaterally L3-L4 and L4-L5 that did provide initially at least 80% improvement. Patient does state that she feels like this is completely worn off now and that she is having significant pain throughout her low back. She states that bending and lifting are extreme and do interfere with her ability to perform activities of daily living such as cooking and cleaning. Patient does state that she would like to get scheduled for repeat injection as the last one did significantly help lower her overall pain and give improvement on a day-to-day basis. patient is prescribed compounded cream from our office along with methocarbamol 500 mg twice a day and ropinirole 0.25 mg at bedtime for her leg cramps. Her Grabiel has been reviewed and is appropriate. Review of Systems: General: No recent weight changes, no fever, no sleep disturbances Respiratory: No cough, no shortness of air, no recurring pulmonary infections Cardiovascular/peripheral vascular: No chest pain, no palpitations, no edema, no shortness of breath Gastrointestinal: No new onset incontinence, normal bowel movements reported Genitourinary: No new onset incontinence Musculoskeletal: Low back pain Psychiatric: [Normal mood/affect] Neurological: [Denies weakness in extremities], [denies balance issues] Pain at rest (0-10 scale): 8 Objective Objective:: Physical Exam: General: Alert and oriented x3, no acute distress, pleasant and cooperative Lungs: Respirations even and unlabored, symmetrical chest expansion Eyes: PERRL Musculoskeletal: Flexion and extension of lumbar [spine] somewhat guarded secondary to pain, [antalgic gait noted] positive Kemps test Neurological: Speech clear, no gross sensory deficit Has patient had previous pain injection?: No Conservative treatment options previously tried: Home exercise plan Length of treatment: Longer than 12 weeks and Physical Therapy Length of treatment: Ongoing Meds Home Medications and Allergies Home Medications ?Medication ?Instructions ?Recorded ?Confirmed ?Type krill oil 500 mg capsule 500 mg PO DIRECTED SUPPLIMENT 07/27/23 10/22/24 History multivitamin with minerals-folic 0.4 tab PO DAILY SUPPLIMENT 07/27/23 10/22/24 History acid 0.4 mg tablet (One Daily Womens 50 Plus) omeprazole 20 mg capsule,delayed 20 mg PO DAILY 07/27/23 10/22/24 History release methocarbamol 500 mg tablet 500 mg PO BID #28 tabs 05/08/24 10/22/24 Rx ondansetron HCl 4 mg tablet 4 mg PO Q8H PRN nausea and 05/27/24 10/22/24 Rx vomiting #30 tabs lisinopril 10 mg tablet See Rx Instructions .Route 07/07/24 10/22/24 Rx .COMPLEX #90 tabs ropinirole 0.25 mg tablet 0.25 mg PO HS #14 tabs 09/03/24 10/22/24 Rx atenolol 50 mg tablet 50 mg PO ONCE 30 days #30 tabs 09/22/24 10/22/24 Rx semaglutide (weight loss) 1.7 1.7 mg (0.75 mL) SQ WEEKLY 30 days 10/17/24 10/22/24 Rx mg/0.75 mL subcutaneous pen #3.75 mL injector trazodone 50 mg tablet See Rx Instructions .Route 11/10/24 Rx .COMPLEX #30 tabs New Prescriptions to Start Prescriptions: Allergies Allergy/AdvReac Type Severity Reaction Status Date / Time bacitracin (From Neosporin Allergy Verified 10/17/24 10:57 ([id number])) diphenhydramine (From Allergy Verified 10/17/24 10:57 Benadryl) neomycin (From Neosporin Allergy Verified 10/17/24 10:57 ([id number])) polymyxin B (From Neosporin Allergy Verified 10/17/24 10:57 ([id number])) prochlorperazine (From Allergy Verified 10/17/24 10:57 Compazine) promethazine (From Phenergan) Allergy Verified 10/17/24 10:57 tetracycline Allergy Verified 10/17/24 10:57 metals AdvReac Uncoded 10/17/24 10:57 Assessment and Plan *Assessment and plan (1) Left knee pain: Status: Acute Category: Medical Code(s): M25.562 - Pain in left knee (2) Left hip pain: Status: Acute Category: Medical Code(s): M25.552 - Pain in left hip (3) Lumbar spondylosis: Status: Acute Category: Medical Code(s): M47.816 - Spondylosis without myelopathy or radiculopathy, lumbar region (4) Lumbar facet arthropathy: Status: Acute Category: Medical Code(s): M47.816 - Spondylosis without myelopathy or radiculopathy, lumbar region Plan Patient is experiencing worsening pain in her low back with limited range of motion and a positive Kemps test. Patient was counseled that I do believe she would benefit from her second diagnostic lumbar medial branch block. Risk and benefits were discussed with the patient and she would like to proceed forward with this plan of care. Patient was counseled that if she does get significant relief with this we will proceed forward with the lumbar RFA at a later date. Patient acknowledges understanding. Patient has tried and failed conservative therapy including continued at home stretching exercise for longer than 12 weeks and between injections. Patient did have her first lumbar medial branch block that did provide 80% improvement and gave improved function. Patient getting prolonged relief for longer than 4 weeks with this injection. Patient will be scheduled for her second diagnostic lumbar medial branch block bilaterally L3-L4 and L4-L5 under fluoroscopy. Patient has been instructed to contact the clinic with any concerns before the next appointment. Dr. Mccormick has reviewed this note and agrees with this plan of care. This note was dictated using voice recognition software and make contain errors or omissions. All injections are used with Lidocaine, Bupivacaine and Depo Medrol. Occasionally urine drug screen is needed to verify patient's compliance with our office pain contract. This is ordered based off specific treatments related to chronic pain with the potential to abuse certain medications.
[2024-11-12 10:28] VITALS: BP 120/67; PULSE 76; RESP 14; O2SAT 97; BMI 39.4
== END 2024-11-12 23:59 | disposition home or self-care (01) ==
LOC: SC.PAIN 09:16
PROVIDERS: PCP Nurse Practitioner Family; Visit Provider Nurse Practitioner Family
DX: M25.562 Pain in left knee (principal); M25.552 Pain in left hip; M47.816 Spondylosis without myelopathy or radiculopathy, lumbar region; Z87.891 Personal history of nicotine dependence; Z73.89 Other problems related to life management difficulty
CPT/HCPCS: 99212; G0463

== ENCOUNTER 2024-11-13 11:00 | Outpatient (RCR) | payer BC, SELFPAY ==
--- NOTE | 2024-11-03 11:32 | HMH.PTOPEV ---
PT Outpatient Evaluation Rehab PT Outpatient Evaluation Start: 11/03/24 09:49 Freq: Status: Active Protocol: Document 11/03/24 09:50 EILEEN (Rec: 11/03/24 11:29 EILEEN [id number]) E-signed By Blanca Alcantara, PT Outpatient Therapy Subjective History Subjective History This is an initial physical therapy evaluation for 58 y/o, Selam Barnes, who presents with referral for PT consult d/t L hip pain. Pt reports she stepped on a dog toy and twisted her left leg. Pt felt instant L knee pain and L delayed hip pain. Pt reports her hip pain is more painful than her knee pain. Pt describes her knee pain as occasionally sharp and hip pain as a dull ache. Pt denies hearing any popping, clicking , or clunking during or after injury. Pt denies any prior hip or knee pain. Pt does have chronic LBP. Denies numbness or tingling but does report some weakness and instability in LLE. Imaging: Hip x-ray and knee x- ray 09/29: Clear from bony abnormality. Pt has an MRI scheduled on Sunday. PMH: Back pain, Alpha thalassaemia minor, Hidradenitis suppurativa of multiple sites, Cardiac abnormality, Hypertension New diagnosis of cancer in past 12 No months? Chief Complaint Pain,Gives out/Unstable Symptom Type Ache,Sharp,Dull,Stabbing Symptoms Relieved By Rest/Positioning Symptoms Aggravated By Standing,Physical Activity, Walking Prior Functional Limitations None Current Functional Limitations Lifting,Housework Symptom Description Constant but Variable Level of pain today (0-10) 5 Pain scale - at its best (0-10) 3 Pain scale - at its worst (0-10) 8 Hip/Knee Eval Gait Observation General Gait Pattern Observation Antalgic Gait Assistive Device Assistive Devices None / NA Palpation Tenderness left Knee Palpation Finding Tenderness Knee Palpation Overall Comment 2/4 TTP lateral joint line and GT Hip Palpation Findings Tenderness MMT Hip Flexion Strength Grade 4- Good- Hip Abduction Strength Grade 4 Good Hip Adduction Strength Grade 4 Good Hip Extension Strength Grade 4 Good Knee Extension Strength Grade 4- Good- Knee Flexion Strength Grade 4- Good- ROM Hip Flexion w/Knee Flexed Active Range WNL of Motion (degrees) Hip Abduction Passive Range of Motion ( 30 degrees) Hip External Rotation Passive Range of 40 Motion (degrees) Hip Internal Rotation Passive Range of 30 Motion (degrees) Knee Extension Active Range of Motion ( 0, non-painful degrees) Knee Flexion Active Range of Motion ( 115, painful degrees) Lower Extremity Functional Index Activities Today, do you or would you have any difficulty at all with: a.Any of your usual work, housework or Moderate difficulty school activities b. Your usual hobbies, recreational or Moderate difficulty sporting activities c. Getting into or out of the bath Moderate difficulty d. Walking between rooms Moderate difficulty e. Putting on your shoes or socks Moderate difficulty f. Squatting Moderate difficulty g. Lifting an object, like a bag of Moderate difficulty groceries from the floor h. Performing light activities around Moderate difficulty your home i. Performing heavy activities around Quite a bit of difficulty your home j. Getting into or out of a car Moderate difficulty k. Walking 2 blocks Moderate difficulty l. Walking a mile Quite a bit of difficulty m. Going up or down 10 stairs (about 1 Moderate difficulty flight of stairs) n. Standing for 1 hour Moderate difficulty o. Sitting for 1 hour Moderate difficulty p. Running on even ground Moderate difficulty q. Running on uneven ground Quite a bit of difficulty r. Making sharp turns while running fast Extreme difficulty or unable to perform activity s. Hopping Moderate difficulty t. Rolling over in bed Moderate difficulty LEFI Score Lower Extremity Functional Index Score 35 Miscellaneous Dx PT Eval Objective Objective Special tests: LLE: - Deep Squat: Half range and unable to achieve d/t pain in posterior knee - Thessaly's test: Unable d/t hip pain. - Apley test: Negative - Log roll test: no pain or clicking in hip. - Patella Apprehension: negative - KINGSLEY: positive - FADIR: negative for hip, pain in R back. - Knee anterior Shea: Negative and pain free - Posterior drawer test: Negative and pain free - Knee Valgus/varus stress: Valgus caused some discomfort Outpatient Therapy Assessment Impairments Problems/Impairmments Palpation Tenderness,Impaired Range of Motion,Impaired Strength,Impaired Endurance, Impaired Transfers,Impaired Gait Pattern,Impaired Walking, Impaired Standing,Impaired Sitting,Impaired Lifting, Impaired Stair Climbing, Impaired Incline Stepping, Impaired Stepping on Uneven Surface,Impaired Squatting, Impaired Bending,Impaired Recreational Activities, Impaired Running,Impaired Balance,Subjective C/O Pain Prognosis Rehab Potential Good Comment Pt presents with acute L hip and knee pain. Pt is obtaining a knee and hip MRI on Sunday to assess for soft issue injury. Pt would benefit from skilled OP PT to address acute injury and return to PLOF. Clinical Impression Consistent with Diagnosis Yes Consistent with Hip pain, knee pain Additional details: and knee pain: ICD M25.56 Short Term Goals Number of Weeks 3 Decreased Palpation Tenderness Yes: 1/4 TTP affected structures Increase Strength Yes: Improve L hip flexion strength by 1/2 grade to improve function. Increase Ability to Walk Yes: Verbalize improved ability to perform community ambulation distances. Improve LEFI Score Yes: Improve to 40/80 Decrease Subjective C/O Pain Yes: 48 hour pain average of 5 /10 to decrease pain severity. Patient to be Ind w/ HEP Yes: Verbalize IND with HEP Fdc Goals Number of Weeks 6 Decreased Palpation Tenderness Yes: 0/4 TTP affected structures Increase Range of Motion Yes: L hip and knee WNL and pain-free to return to PLOF Increase Strength Yes: LLE 5/5 MMT to maximize function. Improve Ability to Climb Stairs Yes: Negotiate 12 6 steps without gait deviations or compensations. Improve Ability to Squat Yes: Demo one functional squat Improve LEFI Score Yes: Improve to 50/80 to improve LE functioning. Decrease Subjective C/O Pain Yes: 48 hour pain average of < or =3/10 Patient to be Ind w/ Advanced HEP Yes: Verbalize adherence to HEP Outpatient Therapy Plan of Care Treatment Plan May Include Therapeutic Exercise Including Home Yes Exercise Program Manual Therapy Techniques Yes Neuromuscular Re-education Yes Therapeutic Activities to Return to Yes Previous Functional/Work Level Gait Training Yes ADL/Self Care Education Yes Dry Needling Yes Thermal Modalities Yes Electrical Stimulation Yes Ultrasound/Phonophoresis Yes Iontophoresis Yes Orthotics/Bracing/Splinting Yes Vasopneumatic Compression Pump Yes Massage Yes Eval/Re-Eval Yes Aquatic Therapy Yes Frequency Times per week 2-3 times Duration Number of Weeks 5-6 weeks Addendums This patient is a candidate for social No or vocational rehab? Patient/Guardian verbally acknowledges Yes understanding of treatment program and consents to further treatment? Patient/Guardian verbally acknowledges Yes understanding of diagnosis, prognosis and goals for treatment? Eval Complexity PT Charges 03128 - Moderate Complexity Shoulder/Elbow Eval Shoulder Objective Measurements Elbow Objective Measurements PHYSICIAN CERTIFICATION: I certify the specified therapy services for Selam Barnes are required, authorized, and reviewed every 30 days.
== END 2024-11-13 23:59 | disposition home or self-care (01) ==
LOC: PT 11:00
PROVIDERS: PCP Nurse Practitioner Family; Visit Provider Nurse Practitioner Family
DX: M25.552 Pain in left hip (principal)
CPT/HCPCS: 97016; 97110; 97163; 97530

== ENCOUNTER 2024-11-19 08:35 | Outpatient (CLI) | payer BC, SELFPAY ==
--- NOTE | 2024-11-19 08:35 | MR_ITS ---
FINAL REPORT CLINICAL HISTORY: left hip pain post fall. TWISTED KNEE AND HAS HAD HIP AND KNEE PAIN SINCE. LATERAL SIDED KNEE PAIN. KNEE INSTABILITY. FINDINGS: Multiplanar MR imaging of the left hip was performed without contrast. There is no evidence of fracture or dislocation. There is mild narrowing of the hip joint spaces bilaterally. There is no evidence of avascular necrosis. No bony mass is identified. No labral tear is identified. There are partial insertional tears of the gluteus medius and minimus, predominantly involving the gluteus medius. Mild overlying edema is identified. There is mild edema overlying the left greater trochanter. IMPRESSION: Partial intrasubstance tear of the gluteus medius and to a lesser extent the gluteus minimus with overlying fluid and edema. Reviewed, Interpreted and Dictated by Guy Jules MD Transcribed by Valerie Lawson Authenticated and [facility]
--- NOTE | 2024-11-19 08:35 | MR_ITS ---
FINAL REPORT CLINICAL HISTORY: Left knee pain, injury. TWISTED KNEE AND HAD HIP AND KNEE PAIN SINCE. LATERAL SIDED KNEE PAIN. KNEE INSTABILITY. FINDINGS: Multi planar MR imaging was performed of the left knee. The anterior and posterior cruciate ligaments are intact. The quadriceps and patellar tendons are intact. There is increased signal in the posterior horn of the medial meniscus, probably due to intrasubstance degeneration. The lateral meniscus is intact. There are mild hypertrophic changes at the medial and lateral joint margins. The medial and lateral collateral ligaments appear intact. The medial and lateral retinacula appear intact. There is no evidence of bone marrow edema or osteochondral defect. No evidence of soft tissue inflammatory reaction. IMPRESSION: Intrasubstance degeneration posterior horn medial meniscus. Reviewed, Interpreted and Dictated by Guy Jules MD Transcribed by Valerie Lawson Authenticated and . [facility]
== END 2024-11-19 23:59 | disposition home or self-care (01) ==
LOC: RAD 08:35
PROVIDERS: PCP Nurse Practitioner Family; Visit Provider Nurse Practitioner Family
DX: M25.552 Pain in left hip (principal); M25.652 Stiffness of left hip, not elsewhere classified; M25.562 Pain in left knee; S89.92XA Unspecified injury of left lower leg, initial encounter
CPT/HCPCS: 73721

== ENCOUNTER 2024-11-25 09:24 | Day surgery (SDC) | payer BC, SELFPAY ==
[2024-11-25 09:35] VITALS: BP 122/70; PULSE 77; RESP 16; TEMP 36.9; O2SAT 99; BMI 39.4
[2024-11-25] MEDS: methylPREDNISolone ACETATE 80MG/ML VIAL 80 MG (09:42)
[2024-11-25] MEDS: BUPIVACAINE 0.25% 10ML INJ 25 MG IJ (09:42)
[2024-11-25] MEDS: LIDOCAINE 1% 5ML PF VIAL 5 ML (09:43)
[2024-11-25 09:44] VITALS: BP 111/62; PULSE 74; RESP 18; O2SAT 96
[2024-11-25 09:45] VITALS: BP 111/62; PULSE 74; RESP 18; O2SAT 96
[2024-11-25 10:04] VITALS: BP 109/61; PULSE 77; RESP 16; O2SAT 96
--- NOTE | 2024-11-25 10:36 | P.PCN_ITS ---
Procedure Date: 11/25/24 Time: 09:30 Anesthesiologist:: Jose Miguel Rutherford CRNA Complications:: None Pre-procedure Diagnosis:: Degenerative disc lumbar spine multilevels. Lumbar radiculopathy. Lumbar spondylosis. Multilevel lumbar facet arthropathy. Post-procedure Diagnosis:: Same. Indications for Procedure:: Patient is a pleasant 59-year-old female who comes our clinic today for ROUND TWO of lumbar medial branch blocks/facet injection of the bilateral L3-4, L4-5 level. Patient describes low lumbar back pain as constant, dull, aching. She reports having difficulty with lumbar flexion, extension, left and right rotation. She reports responding very well to her first round of injections at the same levels lasting 1 month. She rates her pain today 5/10. Procedure Details:: Informed consent was obtained and the risk and benefits of the procedure was explained to the patient. Patient was taken to the procedure room where noninvasive monitors were placed, including noninvasive blood pressure cuff as well as pulse oximeter. The area over the lumbar spine was cleansed using chlorhexidine as a cleansing solution. I anesthetized the skin and subcutaneous tissues with 1% Lidocaine. I placed 22-gauge spinal needles into the facet arias int/ medial branches of [L3-L4, L4-L5 bilaterally. Needle placement was confirmed with fluoroscopy. After confirmation of needle placement, each site was injected with 1 mL of 1% lidocaine and 0.25 % Marcaine and 10 mg of Depo- Medrol. A total of 80 mg of depo medrol was used for bilateral medial branch blocks of [L3-L4, L4-L5 bilaterally. Patient tolerated the procedure without difficulty. There were no complications. Plan and Disposition:: Patient was discharged without incident.
== END 2024-11-25 10:04 | disposition home or self-care (01) ==
PROVIDERS: PCP Nurse Practitioner Family; Visit Provider Nurse Anesthetist, Certified Registered
DX: M47.816 Spondylosis without myelopathy or radiculopathy, lumbar region (principal); M51.362 Other intervertebral disc degeneration, lumbar region with discogenic back pain and lower extremity pain
CPT/HCPCS: 64493; 64494; J1010

== ENCOUNTER 2024-12-10 11:00 | Outpatient (RCR) | payer BC, SELFPAY ==
--- NOTE | 2024-12-03 16:34 | HMH.RHREAS ---
Rehab Reassessment Rehab OP Re-assessment Start: 11/17/24 10:49 Freq: Status: Active Protocol: Document 12/03/24 16:20 PHORNE (Rec: 12/03/24 16:34 PHORNE [id number]) E-signed By Gregory Moya, PT Lower Extremity Functional Index Activities Today, do you or would you have any difficulty at all with: a.Any of your usual work, housework or A little bit of difficulty school activities b. Your usual hobbies, recreational or A little bit of difficulty sporting activities c. Getting into or out of the bath No difficulty d. Walking between rooms A little bit of difficulty e. Putting on your shoes or socks A little bit of difficulty f. Squatting A little bit of difficulty g. Lifting an object, like a bag of A little bit of difficulty groceries from the floor h. Performing light activities around A little bit of difficulty your home i. Performing heavy activities around Moderate difficulty your home j. Getting into or out of a car A little bit of difficulty k. Walking 2 blocks Moderate difficulty l. Walking a mile Moderate difficulty m. Going up or down 10 stairs (about 1 Moderate difficulty flight of stairs) n. Standing for 1 hour Moderate difficulty o. Sitting for 1 hour A little bit of difficulty p. Running on even ground Moderate difficulty q. Running on uneven ground Moderate difficulty r. Making sharp turns while running fast Moderate difficulty s. Hopping Moderate difficulty t. Rolling over in bed A little bit of difficulty LEFI Score Lower Extremity Functional Index Score 52 Rehab Re-assessment Subjective Subjective I'll let you know how sore I am after I get on this bike. My trip to [place] was long and I should've walked around my sister's property when we were there but that probably would've killed me. L hip> knee pain. It's not excruciating, but my hip is annoyed, maybe 5/10. Pt reports ~ 50% symptom improvement. MRI report from 11/19/24: Partial intrasubstance tear of the gluteus medius and to a lesser extent the gluteus minimus with overlying fluid and edema. Objective Objective Notes MMT L LE: HIP FLEX 4+/5, HIP ABD 4+/5, HIP IR 4+/5, HIP ER 4+/5, KNEE FLEX 5/5, KNEE EXT 5/5. Pain at worst: 10. Current pain 02/21. LEFS 52 this date vs 35 on IE. Stairs: Pt unable to ascend/ descend stairs in a reciprocal pattern due to pain. TTP: 10/18 L lateral hip Assessment Progress Assessment Progressing as Expected Assessment Notes Pt continues to have significant reports of pain in the L hip, especially with any prolonged sitting, standing, or walking. L LE strength has improved, but activity remains decreased overall. Skilled therapy remains indicated to improve functional, pain-free mobility in standing, especially stairs, in order to return pt to OF. Patient goals met ST/6 LT/8 Plan Plan Continue per initial POC, adding increased balance and isometric L LE exercises as allowable by pain and pt tolerance. Frequency of Therapy 2-3 x/wk Duration of therapy wks Time and Billing Re-Eval Time 12 Re-Eval Billing Units 1 Charge for PT reassessment? Yes PHYSICIAN CERTIFICATION: I certify the specified therapy services for Selam Barnes are required, authorized, and reviewed every 30 days.
== END 2024-12-10 23:59 | disposition home or self-care (01) ==
LOC: PT 11:00
PROVIDERS: PCP Nurse Practitioner Family; Visit Provider Nurse Practitioner Family
DX: M25.552 Pain in left hip (principal)
CPT/HCPCS: 97014; 97016; 97110; 97164; G0283

== ENCOUNTER → 2024-12-12 20:25 | Outpatient (CLI) | payer BC, SELFPAY | LOC: SL 20:27 | PROVIDERS: PCP Nurse Practitioner Family; Visit Provider Nurse Practitioner Family | DX: G47.33 Obstructive sleep apnea (adult) (pediatric) (principal) | CPT/HCPCS: 95810 ==

== ENCOUNTER 2024-12-18 10:12 | Outpatient (POV) | payer BC, SELFPAY ==
--- NOTE | 2024-12-18 10:51 | A.OFFVIS_ITS ---
[facility] Disclaimer: The information contained in this section may have been updated after the patient was seen, as this information can be updated by other users. Medical History (Updated 12/12/24 @ 22:05 by Sobia Mcneil APRN) COVID-19 Back pain Alpha thalassaemia minor Hidradenitis suppurativa of multiple sites Cardiac abnormality Hypertension Surgical History History of tubal ligation [place] teeth extracted Family History Family/Other PVCs (premature ventricular contractions) Congestive heart failure Hypertension Diabetes Coronary artery disease Thyroid disorder Kidney disease Social History Smoking Status: Former smoker alcohol intake: current alcohol intake frequency: a few times a week substance use type: denies use current occupational status: other Travel in the last 8 weeks: None PM Subjective & Objective Subjective Subjective:: Patient is a pleasant 59-year-old female who presents today for follow-up of her second lumbar medial branch block bilaterally L3-L4 and L4-L5 on 11/25/2024. Today she rates her pain a 7 out of 10. She denies any new injury or trauma. She does state that she had at least 80% improvement the day of the injection. She states that it did wear off once the numbing medication stopped working and it did take a couple of days to kick in however then it did go back to providing significant relief. She states that it did last about 2 weeks and that she felt like she did have improved function overall. Patient does state that she is having more pain today related to ongoing physical therapy. She states she had it yesterday and is very sore and tender. She had her first lumbar medial branch block bilaterally L3-L4 and L4-L5 that that also provided 80% improvement. She states that she is feeling like the pain is going back to her baseline and is interfering with activities of daily living such as cooking and cleaning. She states that the pain is still on throughout her back and denies any radiating symptoms into her legs. She is prescribed compounded cream from our office along with methocarbamol 500 mg twice a day and ropinirole 0.25 mg at bedtime for her leg cramps. Her Grabiel has been reviewed and is appropriate. Review of Systems: General: No recent weight changes, no fever, no sleep disturbances Respiratory: No cough, no shortness of air, no recurring pulmonary infections Cardiovascular/peripheral vascular: No chest pain, no palpitations, no edema, no shortness of breath Gastrointestinal: No new onset incontinence, normal bowel movements reported Genitourinary: No new onset incontinence Musculoskeletal: Low back pain Psychiatric: [Normal mood/affect] Neurological: [Denies weakness in extremities], [denies balance issues] Pain at rest (0-10 scale): 7 Objective Objective:: Physical Exam: General: Alert and oriented x3, no acute distress, pleasant and cooperative Lungs: Respirations even and unlabored, symmetrical chest expansion Eyes: PERRL Musculoskeletal: Flexion and extension of lumbar [spine] somewhat guarded secondary to pain, [antalgic gait noted] positive Kemps test Neurological: Speech clear, no gross sensory deficit Has patient had previous pain injection?: Yes Percent improvement in pain since last injection: 80% Conservative treatment options previously tried: Home exercise plan Length of treatment: Longer than 12 weeks Meds Home Medications and Allergies Home Medications ?Medication ?Instructions ?Recorded ?Confirmed ?Type krill oil 500 mg capsule 500 mg PO DIRECTED SUPPLIMENT 07/27/23 12/12/24 History multivitamin with minerals-folic 0.4 tab PO DAILY SUPPLIMENT 07/27/23 12/12/24 History acid 0.4 mg tablet (One Daily Womens 50 Plus) omeprazole 20 mg capsule,delayed 20 mg PO DAILY 07/27/23 12/12/24 History release methocarbamol 500 mg tablet 500 mg PO BID #28 tabs 05/08/24 12/12/24 Rx ondansetron HCl 4 mg tablet 4 mg PO Q8H PRN nausea and 05/27/24 12/12/24 Rx vomiting #30 tabs ropinirole 0.25 mg tablet 0.25 mg PO HS #14 tabs 09/03/24 12/12/24 Rx atenolol 50 mg tablet 50 mg PO ONCE 90 days #90 tabs 12/12/24 12/12/24 Rx docusate sodium 100 mg capsule 300 mg PO HS 12/12/24 12/12/24 History lisinopril 5 mg tablet 5 mg PO DAILY #90 tabs 12/12/24 12/12/24 Rx semaglutide (weight loss) 2.4 2.4 mg (0.75 mL) SQ WEEKLY 30 days 12/12/24 12/12/24 Rx mg/0.75 mL subcutaneous pen #3.75 mL injector trazodone 50 mg tablet See Rx Instructions .Route 12/12/24 12/12/24 Rx .COMPLEX #90 tabs New Prescriptions to Start Prescriptions: Allergies Allergy/AdvReac Type Severity Reaction Status Date / Time bacitracin (From Neosporin Allergy Verified 12/12/24 11:05 ([id number])) diphenhydramine (From Allergy Verified 12/12/24 11:05 Benadryl) neomycin (From Neosporin Allergy Verified 12/12/24 11:05 ([id number])) polymyxin B (From Neosporin Allergy Verified 12/12/24 11:05 ([id number])) prochlorperazine (From Allergy Verified 12/12/24 11:05 Compazine) promethazine (From Phenergan) Allergy Verified 12/12/24 11:05 tetracycline Allergy Verified 12/12/24 11:05 metals AdvReac Uncoded 12/12/24 11:05 Assessment and Plan *Assessment and plan (1) Lumbar facet arthropathy: Status: Acute Category: Medical Code(s): M47.816 - Spondylosis without myelopathy or radiculopathy, lumbar region (2) Lumbar spondylosis: Status: Acute Category: Medical Code(s): M47.816 - Spondylosis without myelopathy or radiculopathy, lumbar region (3) Chronic lower back pain: Status: Acute Qualifiers: Back pain laterality: bilateral Sciatica presence: without sciatica Qualified Code(s): M54.50 - Low back pain, unspecified; G89.29 - Other chronic pain Category: Medical Code(s): M54.50 - Low back pain, unspecified; G89.29 - Other chronic pain Plan Patient has had 2 successful lumbar medial branch blocks with 80% relief with her second 1 lasting approximately 2 weeks. Patient is having worsening pain today with limited range of motion of her lumbar spine and a positive Kemps test. I did discuss with the patient that I do believe she would benefit from a lumbar RFA. Risk and benefits were discussed with patient and she would like to proceed forward with this plan of care. Patient has tried and failed conservative therapy including continued at home stretching exercises for longer than 12 weeks and between injections. Patient states the injections have been the only thing that has really provided significant improvement and given her better quality of life. We will submit to insurance for her lumbar radiofrequency ablation bilaterally L3-L4 and L4-L5 under fluoroscopy. Patient has been instructed to contact the clinic with any concerns before the next appointment. Dr. Mccormick has reviewed this note and agrees with this plan of care. This note was dictated using voice recognition software and make contain errors or omissions. All injections are used with Lidocaine, Bupivacaine and Depo Medrol. Occasionally urine drug screen is needed to verify patient's compliance with our office pain contract. This is ordered based off specific treatments related to chronic pain with the potential to abuse certain medications.
[2024-12-18 12:17] VITALS: BP 110/75; PULSE 71; RESP 18; O2SAT 99; BMI 38.4
== END 2024-12-18 23:59 | disposition home or self-care (01) ==
LOC: SC.PAIN 10:13
PROVIDERS: PCP Nurse Practitioner Family; Visit Provider Nurse Practitioner Family
DX: M47.816 Spondylosis without myelopathy or radiculopathy, lumbar region (principal); M54.50 Low back pain, unspecified; G89.29 Other chronic pain; Z87.891 Personal history of nicotine dependence; Z73.89 Other problems related to life management difficulty
CPT/HCPCS: 99212; G0463

== ENCOUNTER 2025-01-06 11:58 | Day surgery (SDC) | payer BC, SELFPAY ==
[2025-01-06 12:04] VITALS: BP 127/67; PULSE 70; RESP 16; TEMP 36.8; O2SAT 100; BMI 37.9
[2025-01-06] MEDS: LIDOCAINE 1% 5ML PF VIAL 5 ML (12:32)
[2025-01-06] MEDS: BUPIVACAINE 0.25% 10ML INJ 25 MG IJ (12:32)
[2025-01-06 12:33] VITALS: BP 127/67; PULSE 70; RESP 18; O2SAT 99
[2025-01-06 12:38] VITALS: BP 127/67; BP 131/74; PULSE 64; PULSE 70; RESP 16; RESP 18; O2SAT 96; O2SAT 99
--- NOTE | 2025-01-06 12:39 | P.PCN_ITS ---
Procedure Date: 01/06/25 Time: 12:15 Anesthesiologist:: Jose Miguel Rutherford CRNA Complications:: None Pre-procedure Diagnosis:: Degenerative disc lumbar spine multilevels. Lumbar radiculopathy. Lumbar facet arthropathy. Lumbar spondylosis. Post-procedure Diagnosis:: Same. Indications for Procedure:: Patient is a very pleasant 59-year-old female who comes our clinic today for bilateral L3-4, L4-5 radiofrequency ablation. Patient describes low lumbar back pain as constant, dull, aching. Standing increases pain. She reports difficulty with lumbar flexion, extension, left and right rotation. She reports responding significantly to previous lumbar medial branch blocks/facet injections at the same levels. Procedure Details:: Procedure Details: Lumbar RFA Informed consent was obtained and the risk and benefits of the procedure was exp lained to the patient. Patient was placed prone on the procedure table. The patient was prepped and draped in sterile fashion. C-arm fluoroscopy was used to view the lumbar spine. The skin and subcutaneous tissues were anesthetized using lidocaine. I placed 20-gauge RF needles into the facet joints of L3-L4, L4-L5 and L5-S1 bilaterally. We underwent sensory stimulation. There is good sensory stimulation at 0.8 V. We underwent motor stimulation. There is no motor stimulation at 2 V. We then anesthetized these levels with lidocaine and Depo- Medrol. I used a total of 40 mg Depo-Medrol for all 3 levels. I then burned all 3 levels of L3-L4, L4-5 and L5-S1 bilaterally for 4 minutes at 80 ?C. Patient tolerated the procedure well with no complication. Plan and Disposition:: We will follow-up with this patient in 2 weeks. We will reevaluate her symptoms at that time. Plan and Disposition:: Patient was discharged without incident.
== END 2025-01-06 12:38 | disposition home or self-care (01) ==
PROVIDERS: PCP Nurse Practitioner Family; Visit Provider Nurse Anesthetist, Certified Registered
DX: M47.816 Spondylosis without myelopathy or radiculopathy, lumbar region (principal); M51.16 Intervertebral disc disorders with radiculopathy, lumbar region
CPT/HCPCS: 64635; 64636; J1010

== ENCOUNTER 2025-01-07 11:00 | Outpatient (RCR) | payer BC, SELFPAY ==
--- NOTE | 2024-12-29 16:55 | HMH.RHREAS ---
Rehab Reassessment Rehab OP Re-assessment Start: 12/17/24 10:56 Freq: Status: Active Protocol: Document 12/29/24 16:48 PHORYAO (Rec: 12/29/24 16:55 PHORNE [id number]) E-signed By Gregory Moya, PT Lower Extremity Functional Index Activities Today, do you or would you have any difficulty at all with: a.Any of your usual work, housework or A little bit of difficulty school activities b. Your usual hobbies, recreational or Moderate difficulty sporting activities c. Getting into or out of the bath No difficulty d. Walking between rooms No difficulty e. Putting on your shoes or socks A little bit of difficulty f. Squatting A little bit of difficulty g. Lifting an object, like a bag of A little bit of difficulty groceries from the floor h. Performing light activities around A little bit of difficulty your home i. Performing heavy activities around Moderate difficulty your home j. Getting into or out of a car A little bit of difficulty k. Walking 2 blocks A little bit of difficulty l. Walking a mile Moderate difficulty m. Going up or down 10 stairs (about 1 Moderate difficulty flight of stairs) n. Standing for 1 hour Moderate difficulty o. Sitting for 1 hour Moderate difficulty p. Running on even ground Quite a bit of difficulty q. Running on uneven ground Quite a bit of difficulty r. Making sharp turns while running fast Quite a bit of difficulty s. Hopping Moderate difficulty t. Rolling over in bed A little bit of difficulty LEFI Score Lower Extremity Functional Index Score 49 Rehab Re-assessment Subjective Subjective Pt reports mild L knee and hip pain upon arrival. I had trouble sleeping last night but they don't feel too bad today. She reports little change in her symptoms, if any , over the past month. She is scheduled for lumbar nerve rhizotomy in the coming days. Objective Objective Notes MMT L LE: HIP FLEX 4+/5, HIP ABD 4+/5, HIP IR 4+/5, HIP ER 4+/5, KNEE FLEX 5/5, KNEE EXT 5/5. Pain at worst: 7/10. Current pain 5/10. LEFS 49 this date vs 35 on IE and 52 last RA. Stairs: Pt unable to ascend/ descend stairs in a reciprocal pattern due to pain. TTP: 1/4 L lateral hip Assessment Progress Assessment No Progress Assessment Notes Pt continues to have significant reports of pain in the L hip, especially with any prolonged sitting, standing, or walking. L LE strength has improved, but activity remains decreased overall. At this time her symptoms have not continued to improve as expected. It is possible her lumbar spine treatment will improve her condition. Patient goals met ST/6 LT/8 Plan Plan Will d/c pt to independent HEP at this time. New orders necessary if symptoms persist after lumbar rhizotomy. Frequency of Therapy 0 Duration of therapy 0 wks Time and Billing Re-Eval Time 11 Re-Eval Billing Units 1 Charge for PT reassessment? Yes PHYSICIAN CERTIFICATION: I certify the specified therapy services for Selam Barnes are required, authorized, and reviewed every 30 days.
== END 2025-01-07 23:59 | disposition home or self-care (01) ==
LOC: PT 11:00
PROVIDERS: PCP Nurse Practitioner Family; Visit Provider Nurse Practitioner Family
DX: M25.552 Pain in left hip (principal)
CPT/HCPCS: 97110; 97164

== ENCOUNTER 2025-01-14 10:41 | Outpatient (CLI) | payer BC, SELFPAY ==
[2025-01-14 11:50] LABS: Free T4 (Free Thyroxine) 1.18 ng/dl (0.78-2.19)
[2025-01-14 12:02] LABS: Thyroid Stimulating Hormone 0.99 uIU/mL (0.465-4.68)
[2025-01-15 08:13] LABS: Triiodothyronine (T3) Free 2.7 pg/mL (2.0-4.4)
== END 2025-01-14 23:59 | disposition home or self-care (01) ==
LOC: LAB.DROPOF 10:41
PROVIDERS: PCP Nurse Practitioner Family; Visit Provider Nurse Practitioner Family
DX: Z13.29 Encounter for screening for other suspected endocrine disorder (principal); Z86.39 Personal history of other endocrine, nutritional and metabolic disease
CPT/HCPCS: 84436; 84439; 84443; 84481

== ENCOUNTER 2025-01-21 09:22 | Outpatient (POV) | payer BC, SELFPAY ==
[2025-01-21 09:46] VITALS: BP 125/63; PULSE 67; RESP 14; O2SAT 97; BMI 37.5
--- NOTE | 2025-01-21 09:55 | A.OFFVIS_ITS ---
[facility] Disclaimer: The information contained in this section may have been updated after the patient was seen, as this information can be updated by other users. Medical History Alpha thalassaemia minor Back pain Cardiac abnormality COVID-19 Hidradenitis suppurativa of multiple sites Hypertension Surgical History History of tubal ligation [place] teeth extracted Family History Family/Other PVCs (premature ventricular contractions) Congestive heart failure Hypertension Diabetes Coronary artery disease Thyroid disorder Kidney disease Social History Smoking Status: Former smoker alcohol intake: current alcohol intake frequency: a few times a week substance use type: denies use current occupational status: other Travel in the last 8 weeks: None PM Subjective & Objective Subjective Subjective:: Patient is a pleasant 59-year-old female who presents today for follow-up of her lumbar radiofrequency ablation bilaterally L3-L4, L4-L5 and L5-S1 on 01/06/2025. Today she rates her pain a 3 out of 10. She states that it did take about a week for really to kick can. She states that she did have concerns that it was not going to work because she was very tender and painful the first week. She states that pain was all across her low back and hips and seem very positional. She states that prolonged sitting or laying on her sides really aggravated that pain. Patient does state that it did start to improve overall after the first week providing 80% relief. She states right now it is still doing pretty good. Patient is prescribed methocarbamol 500 mg twice a day, ropinirole 0.25 mg at bedtime and compounded cream from our office. She denies any side effects. Patient states that she may need refills on the muscle relaxer. Her Grabiel has been reviewed and is appropriate. Review of Systems: General: No recent weight changes, no fever, no sleep disturbances Respiratory: No cough, no shortness of air, no recurring pulmonary infections Cardiovascular/peripheral vascular: No chest pain, no palpitations, no edema, no shortness of breath Gastrointestinal: No new onset incontinence, normal bowel movements reported Genitourinary: No new onset incontinence Musculoskeletal: Low back pain, hip pain Psychiatric: [Normal mood/affect] Neurological: [Denies weakness in extremities], [denies balance issues] Pain at rest (0-10 scale): 3 Objective Objective:: Physical Exam: General: Alert and oriented x3, no acute distress, pleasant and cooperative Lungs: Respirations even and unlabored, symmetrical chest expansion Eyes: PERRL Musculoskeletal: Flexion and extension of lumbar [spine] somewhat guarded secondary to pain, [antalgic gait noted] point tenderness along bilateral SIs with positive bilateral Gaurang's, Shital's, Gaenslen's, compression and distraction exam Neurological: Speech clear, no gross sensory deficit Has patient had previous pain injection?: Yes Percent improvement in pain since last injection: 80% Conservative treatment options previously tried: Home exercise plan Length of treatment: Longer than 12 weeks Meds Home Medications and Allergies Home Medications ?Medication ?Instructions ?Recorded ?Confirmed ?Type krill oil 500 mg capsule 500 mg PO DIRECTED SUPPLIMENT 07/27/23 01/21/25 History multivitamin with minerals-folic 0.4 tab PO DAILY SUPPLIMENT 07/27/23 01/21/25 History acid 0.4 mg tablet (One Daily Womens 50 Plus) omeprazole 20 mg capsule,delayed 20 mg PO DAILY 07/27/23 01/21/25 History release methocarbamol 500 mg tablet 500 mg PO BID #28 tabs 05/08/24 01/21/25 Rx ondansetron HCl 4 mg tablet 4 mg PO Q8H PRN nausea and 05/27/24 01/21/25 Rx vomiting #30 tabs ropinirole 0.25 mg tablet 0.25 mg PO HS #14 tabs 09/03/24 01/21/25 Rx atenolol 50 mg tablet 50 mg PO ONCE 90 days #90 tabs 12/12/24 01/21/25 Rx docusate sodium 100 mg capsule 300 mg PO HS 12/12/24 01/21/25 History lisinopril 5 mg tablet 5 mg PO DAILY #90 tabs 12/30/24 01/21/25 Rx tirzepatide (weight loss) 2.5 2.5 mg (0.5 mL) SQ WEEKLY #2.5 mL 01/14/25 01/21/25 Rx mg/0.5 mL subcutaneous pen injector (Zepbound) trazodone 50 mg tablet 100 mg (2 x 50 mg) PO HS 30 days 01/14/25 01/21/25 Rx #60 tabs New Prescriptions to Start Prescriptions: Allergies Allergy/AdvReac Type Severity Reaction Status Date / Time bacitracin (From Neosporin Allergy Verified 01/14/25 08:53 ([id number])) diphenhydramine (From Allergy Verified 01/14/25 08:53 Benadryl) neomycin (From Neosporin Allergy Verified 01/14/25 08:53 ([id number])) polymyxin B (From Neosporin Allergy Verified 01/14/25 08:53 ([id number])) prochlorperazine (From Allergy Verified 01/14/25 08:53 Compazine) promethazine (From Phenergan) Allergy Verified 01/14/25 08:53 tetracycline Allergy Verified 01/14/25 08:53 metals AdvReac Uncoded 01/14/25 08:53 Assessment and Plan *Assessment and plan (1) Bilateral sacroiliitis: Status: Acute Category: Medical Code(s): M46.1 - Sacroiliitis, not elsewhere classified Plan Patient has had significant improvement following her lumbar RFA however during today's visit she did have point tenderness along her bilateral SI joint and a positive Gaurang's. I did discuss with the patient that her symptoms do seem consistent with sacroiliitis and that in future it may be beneficial to do injections at these locations. Patient acknowledges understanding. I will refill the patient's methocarbamol and follow-up with her in 1 month. If she continues to have the same pain we will discuss at her upcoming visit about getting her scheduled for these injections. Patient has been instructed to contact the clinic with any concerns before the next appointment. Dr. Mccormick has reviewed this note and agrees with this plan of care. This note was dictated using voice recognition software and make contain errors or omissions. All injections are used with Lidocaine, Bupivacaine and Depo Medrol. Occasionally urine drug screen is needed to verify patient's compliance with our office pain contract. This is ordered based off specific treatments related to chronic pain with the potential to abuse certain medications.
== END 2025-01-21 23:59 | disposition home or self-care (01) ==
PROVIDERS: PCP Nurse Practitioner Family; Visit Provider Nurse Practitioner Family
DX: M46.1 Sacroiliitis, not elsewhere classified (principal); Z87.891 Personal history of nicotine dependence
CPT/HCPCS: 99212; G0463

== ENCOUNTER 2025-02-18 09:57 | Outpatient (POV) | payer BC, SELFPAY ==
[2025-02-18 10:05] VITALS: BP 114/70; PULSE 64; RESP 14; O2SAT 97; BMI 37.5
--- NOTE | 2025-02-18 10:09 | A.OFFVIS_ITS ---
[facility] Disclaimer: The information contained in this section may have been updated after the patient was seen, as this information can be updated by other users. Medical History Alpha thalassaemia minor Back pain Cardiac abnormality COVID-19 Hidradenitis suppurativa of multiple sites Hypertension Surgical History History of tubal ligation [place] teeth extracted Family History Family/Other PVCs (premature ventricular contractions) Congestive heart failure Hypertension Diabetes Coronary artery disease Thyroid disorder Kidney disease Social History Smoking Status: Former smoker alcohol intake: current alcohol intake frequency: a few times a week substance use type: denies use current occupational status: other Travel in the last 8 weeks?: None PM Subjective & Objective Subjective Subjective:: Patient is a pleasant 59-year-old female who presents today for 1 month follow- up. Today she rates her pain a 6 out of 10. She denies any new falls or injuries. She does state that she feels like she is having a lot more low back pain that is farther down and that she is having worsening symptoms into her legs the more she is up on her feet. Patient does state the pain interferes with her ability perform activities of daily living such as cooking and cleaning. Patient does state that she is also noticing more severe cramping in her legs at night. Patient has been prescribed ropinirole 0.25 mg at bedtime from our office along with methocarbamol 500 mg twice daily as needed and compounded cream. She does state that she does still use these medications however frequently she forgets to take the ropinirole. Patient does states she just uses the methocarbamol as needed and denies needing refills at this time. Her Grabiel has been reviewed and is appropriate. Review of Systems: General: No recent weight changes, no fever, no sleep disturbances Respiratory: No cough, no shortness of air, no recurring pulmonary infections Cardiovascular/peripheral vascular: No chest pain, no palpitations, no edema, no shortness of breath Gastrointestinal: No new onset incontinence, normal bowel movements reported Genitourinary: No new onset incontinence Musculoskeletal: Low back pain, leg pain Psychiatric: [Normal mood/affect] Neurological: [Denies weakness in extremities], [denies balance issues] Pain at rest (0-10 scale): 6 Objective Objective:: Physical Exam: General: Alert and oriented x3, no acute distress, pleasant and cooperative Lungs: Respirations even and unlabored, symmetrical chest expansion Eyes: PERRL Musculoskeletal: Flexion and extension of lumbar [spine] somewhat guarded secondary to pain, positive leg raise Neurological: Speech clear, no gross sensory deficit Has patient had previous pain injection?: No Conservative treatment options previously tried: Home exercise plan Length of treatment: Longer than 12 weeks Meds Home Medications and Allergies Home Medications ?Medication ?Instructions ?Recorded ?Confirmed ?Type krill oil 500 mg capsule 500 mg PO DIRECTED SUPPLIMENT 07/27/23 02/18/25 History multivitamin with minerals-folic 0.4 tab PO DAILY SUPPLIMENT 07/27/23 02/18/25 History acid 0.4 mg tablet (One Daily Womens 50 Plus) omeprazole 20 mg capsule,delayed 20 mg PO DAILY 07/27/23 02/18/25 History release ondansetron HCl 4 mg tablet 4 mg PO Q8H PRN nausea and 05/27/24 02/18/25 Rx vomiting #30 tabs ropinirole 0.25 mg tablet 0.25 mg PO HS #14 tabs 09/03/24 02/18/25 Rx atenolol 50 mg tablet 50 mg PO ONCE 90 days #90 tabs 12/12/24 02/18/25 Rx docusate sodium 100 mg capsule 300 mg PO HS 12/12/24 02/18/25 History lisinopril 5 mg tablet 5 mg PO DAILY #90 tabs 12/30/24 02/18/25 Rx tirzepatide (weight loss) 2.5 2.5 mg (0.5 mL) SQ WEEKLY #2.5 mL 01/14/25 02/18/25 Rx mg/0.5 mL subcutaneous pen injector (Zepbound) methocarbamol 500 mg tablet 500 mg PO BID #60 tabs 01/21/25 02/18/25 Rx trazodone 100 mg tablet 100 mg PO HS 30 days #30 tabs 01/23/25 02/18/25 Rx New Prescriptions to Start Prescriptions: Allergies Allergy/AdvReac Type Severity Reaction Status Date / Time bacitracin (From Neosporin Allergy Verified 01/14/25 08:53 ([id number])) diphenhydramine (From Allergy Verified 01/14/25 08:53 Benadryl) neomycin (From Neosporin Allergy Verified 01/14/25 08:53 ([id number])) polymyxin B (From Neosporin Allergy Verified 01/14/25 08:53 ([id number])) prochlorperazine (From Allergy Verified 01/14/25 08:53 Compazine) promethazine (From Phenergan) Allergy Verified 01/14/25 08:53 tetracycline Allergy Verified 01/14/25 08:53 metals AdvReac Uncoded 01/14/25 08:53 Assessment and Plan *Assessment and plan (1) Lumbar radiculopathy: Status: Acute Category: Medical Code(s): M54.16 - Radiculopathy, lumbar region (2) Lumbar spinal stenosis: Status: Acute Qualifiers: Neurogenic claudication status: with neurogenic claudication Qualified Code(s): M48.062 - Spinal stenosis, lumbar region with neurogenic claudication Category: Medical Code(s): M48.061 - Spinal stenosis, lumbar region without neurogenic claudication (3) Degenerative disc disease (DDD) of lumbar region with discogenic back pain and leg pain: Status: Acute Category: Medical Code(s): M51.362 - Other intervertebral disc degeneration, lumbar region with discogenic back pain and lower extremity pain Plan Patient is experiencing worsening pain in her low back with numbness and tingling into her lower extremities. Patient did have limited range of motion of her lumbar spine with a positive leg raise. I did discuss with patient that I do believe they would benefit from a lumbar epidural steroid injection. Risk and benefits were discussed with patient and the patient would like to proceed forward with this plan of care. Patient is not on any blood thinners. Patient has tried and failed conservative therapy including both physical therapy and chiropractor therapy along with continued at home stretching exercise for longer than 12 weeks that was physician guided. Patient did previously have a lumbar epidural back in August and April 2024 that provided 50% relief and lasted approximately 3 months. Patient did get more improvement with the first epidural versus the second epidural. Patient by the 2-week follow-up date was down to about 20-25% improvement. Both of these epidurals were done at the L4- L5 level. Patient is complaining today of the pain radiating down the back of her bilateral legs. I did discuss with the patient that this does follow the dermatome of the S1 level and that I would recommend that we do an epidural of the L5-S1 location. Patient would like to proceed forward with this plan of care. We will schedule the patient for an LESI L5-S1 under fluoroscopy. Patient has been instructed to contact the clinic with any concerns before the next appointment. Dr. Mccormick has reviewed this note and agrees with this plan of care. This note was dictated using voice recognition software and make contain errors or omissions. All injections are used with Lidocaine, Bupivacaine and Depo Medrol. Occasionally urine drug screen is needed to verify patient's compliance with our office pain contract. This is ordered based off specific treatments related to chronic pain with the potential to abuse certain medications.
== END 2025-02-18 23:59 | disposition home or self-care (01) ==
LOC: SC.PAIN 09:58
PROVIDERS: PCP Nurse Practitioner Family; Visit Provider Nurse Practitioner Family
DX: M48.062 Spinal stenosis, lumbar region with neurogenic claudication (principal); M51.16 Intervertebral disc disorders with radiculopathy, lumbar region; Z87.891 Personal history of nicotine dependence; Z73.89 Other problems related to life management difficulty
CPT/HCPCS: 99212; G0463

== ENCOUNTER 2025-03-24 11:06 | Day surgery (SDC) | payer BC, SELFPAY ==
[2025-03-24 11:22] VITALS: BP 110/59; PULSE 62; RESP 16; O2SAT 97; BMI 37.9
--- NOTE | 2025-03-24 11:45 | P.PCN_ITS ---
Procedure Date: 03/24/25 Time: 11:40 Anesthesiologist:: Jose Miguel Rutherford CRNA Complications:: None Pre-procedure Diagnosis:: Degenerative disc lumbar spine multilevels. Lumbar radiculopathy. Lumbar spondylosis. Multilevel lumbar facet arthropathy. Post-procedure Diagnosis:: Same. Indications for Procedure:: Patient is a very pleasant 59-year-old female who comes our clinic today for L5- S1 lumbar epidural steroid injection. Patient describes low lumbar back pain at times. Mostly during the day while standing. However, her bilateral leg radicular symptoms in the evening is keeping her awake at night. She rates her pain 8/10. Procedure Details:: Procedure: Lumbar epidural steroid injection under fluoroscopy Informed consent was obtained and the risks and benefits of the procedure were explained to the patient. The patient was taken to the procedure room and noninvasive monitors placed, including noninvasive blood pressure cuff and pulse oximeter. The back was viewed using C-arm Fluoroscopy and prepped using Chloraprep as a cleansing solution and the L5-S1 interspace was palpated. Skin and subcutaneous tissues were anesthetized using lidocaine 1.5% and a 25-gauge needle. After this, an 18-gauge Touhy epidural needle was placed into the L5-S1 interspace and advanced using fluoroscopic guidance and loss of resistance to air until the epidural space was encountered. After confirmation of needle placement in the epidural space, with dye, a solution containing normal saline, 3 mL and Depo-Medrol 80 mg were incrementally injected into the lumbar epidural space. The patient tolerated the procedure well with no complications. The patient was observed in the Pain Clinic and then discharged home neurologically intact. Plan and Disposition:: Patient was discharged without incident.
[2025-03-24 11:46] VITALS: BP 100/65; BP 116/80; PULSE 62; PULSE 65; RESP 16; RESP 18; O2SAT 96; O2SAT 97
[2025-03-24] MEDS: DEXAMETHASONE 10MG/ML 1ML VIAL 10 MG (11:46)
[2025-03-24 11:47] VITALS: BP 100/65; PULSE 62; RESP 18; O2SAT 97
== END 2025-03-24 11:46 | disposition home or self-care (01) ==
PROVIDERS: PCP Nurse Practitioner Family; Visit Provider Nurse Anesthetist, Certified Registered
DX: M51.16 Intervertebral disc disorders with radiculopathy, lumbar region (principal); M47.26 Other spondylosis with radiculopathy, lumbar region; I10 Essential (primary) hypertension; Z87.891 Personal history of nicotine dependence
CPT/HCPCS: 62323; J1100

== ENCOUNTER 2025-04-14 10:50 | Outpatient (POV) | payer BC, SELFPAY ==
[2025-04-14 11:21] VITALS: BP 113/70; PULSE 64; RESP 14; O2SAT 98; BMI 37.9
--- NOTE | 2025-04-14 11:25 | EXP.PAIN.SOA ---
[facility] Disclaimer: The information contained in this section may have been updated after the patient was seen, as this information can be updated by other users. Medical History COVID-19 Back pain Alpha thalassaemia minor Hidradenitis suppurativa of multiple sites Cardiac abnormality Hypertension Surgical History History of tubal ligation [place] teeth extracted Family History Family/Other PVCs (premature ventricular contractions) Congestive heart failure Hypertension Diabetes Coronary artery disease Thyroid disorder Kidney disease Social History Smoking Status: Former smoker alcohol intake: current alcohol intake frequency: a few times a week substance use type: denies use current occupational status: other Travel in the last 8 weeks?: None PM Subjective & Objective Subjective Subjective:: Patient is a pleasant 59-year-old female who presents today for follow-up of her lumbar epidural steroid injection L5-S1 on 03/24/2025. Today she rates her pain a 6 out of 10. She does state that she did feel like it did provide 50% relief however did feel like it was more prominent in the first week. Patient feels like it has already started to wear off. Patient does state that she was even mopping before coming to this appointment and that it did aggravate her low back symptoms. She does state that it is more worse on the right side than the left and will radiate up. Patient did have a RFA in December and states that it was really pricey. She states that she ended up having to pay over $1600 [id number] but that that was a combination between RFA and some other things. Patient is prescribed compounded cream from our office along with methocarbamol 500 mg twice a day and ropinirole 0.5 mg at bedtime. She denies any side effects. She does not need any refills on her muscle relaxer. She does state that the leg symptoms are much worse when she is more active. Grabiel has been reviewed and is appropriate. Review of Systems: General: No recent weight changes, no fever, no sleep disturbances Respiratory: No cough, no shortness of air, no recurring pulmonary infections Cardiovascular/peripheral vascular: No chest pain, no palpitations, no edema, no shortness of breath Gastrointestinal: No new onset incontinence, normal bowel movements reported Genitourinary: No new onset incontinence Musculoskeletal: Low back pain, leg cramps Psychiatric: [Normal mood/affect] Neurological: [Denies weakness in extremities], [denies balance issues] Pain at rest (0-10 scale): 6 Objective Objective:: Physical Exam: General: Alert and oriented x3, no acute distress, pleasant and cooperative Lungs: Respirations even and unlabored, symmetrical chest expansion Eyes: PERRL Musculoskeletal: Flexion and extension of lumbar [spine] somewhat guarded secondary to pain, [antalgic gait noted] Neurological: Speech clear, no gross sensory deficit Has patient had previous pain injection?: Yes Percent improvement in pain since last injection: 50% Conservative treatment options previously tried: Home exercise plan Length of treatment: Longer than 12 weeks Meds Home Medications and Allergies Home Medications ?Medication ?Instructions ?Recorded ?Confirmed ?Type multivitamin with minerals-folic 0.4 tab PO DAILY SUPPLIMENT 07/27/23 04/14/25 History acid 0.4 mg tablet (One Daily Womens 50 Plus) ondansetron HCl 4 mg tablet 4 mg PO Q8H PRN nausea and 05/27/24 04/14/25 Rx vomiting #30 tabs ropinirole 0.25 mg tablet 0.25 mg PO HS #14 tabs 09/03/24 04/14/25 Rx atenolol 50 mg tablet 50 mg PO ONCE 90 days #90 tabs 12/12/24 04/14/25 Rx docusate sodium 100 mg capsule 300 mg PO HS 12/12/24 04/14/25 History lisinopril 5 mg tablet 5 mg PO DAILY #90 tabs 12/30/24 04/14/25 Rx methocarbamol 500 mg tablet 500 mg PO BID #60 tabs 01/21/25 04/14/25 Rx omeprazole 20 mg capsule,delayed 20 mg PO .qotherday 02/18/25 04/14/25 History release magnesium glycinate 100 mg PO DIRECTED 04/08/25 04/14/25 History semaglutide (weight loss) 0.5 0.5 mg (0.5 mL) SQ WEEKLY #2 mL 04/08/25 04/14/25 Rx mg/0.5 mL subcutaneous pen injector (Sarika) vitamin B complex 1 cap PO DAILY 04/08/25 04/14/25 History New Prescriptions to Start Prescriptions: Allergies Allergy/AdvReac Type Severity Reaction Status Date / Time bacitracin (From Neosporin Allergy Verified 04/08/25 15:41 ([id number])) diphenhydramine (From Allergy Verified 04/08/25 15:41 Benadryl) neomycin (From Neosporin Allergy Verified 04/08/25 15:41 ([id number])) polymyxin B (From Neosporin Allergy Verified 04/08/25 15:41 ([id number])) prochlorperazine (From Allergy Verified 04/08/25 15:41 Compazine) promethazine (From Phenergan) Allergy Verified 04/08/25 15:41 tetracycline Allergy Verified 04/08/25 15:41 metals AdvReac Uncoded 04/08/25 15:41 Assessment and Plan *Assessment and plan (1) Degenerative disc disease (DDD) of lumbar region with discogenic back pain and leg pain: Status: Acute Category: Medical Code(s): M51.362 - Other intervertebral disc degeneration, lumbar region with discogenic back pain and lower extremity pain (2) Lumbar facet arthropathy: Status: Acute Category: Medical Code(s): M47.816 - Spondylosis without myelopathy or radiculopathy, lumbar region Plan We will increase her compounded cream concentration and also increase the ropinirole to 0.5 at bedtime. Patient will return to clinic in 1 month for reevaluation of symptoms and plan of care. Patient has been instructed to contact the clinic with any concerns before the next appointment. Dr. Mccormick has reviewed this note and agrees with this plan of care. This note was dictated using voice recognition software and make contain errors or omissions. All injections are used with Lidocaine, Bupivacaine and dexamethasone. Occasionally urine drug screen is needed to verify patient's compliance with our office pain contract. This is ordered based off specific treatments related to chronic pain with the potential to abuse certain medications.
== END 2025-04-14 23:59 | disposition home or self-care (01) ==
PROVIDERS: PCP Nurse Practitioner Family; Visit Provider Nurse Practitioner Family
DX: M51.362 Other intervertebral disc degeneration, lumbar region with discogenic back pain and lower extremity pain (principal); M47.816 Spondylosis without myelopathy or radiculopathy, lumbar region
CPT/HCPCS: 99212; G0463

== ENCOUNTER 2025-05-18 11:24 | Outpatient (POV) | payer BC, SELFPAY ==
[2025-05-18 11:38] VITALS: BP 103/56; PULSE 72; RESP 14; O2SAT 97; BMI 37.3
--- NOTE | 2025-05-18 11:48 | A.OFFVIS_ITS ---
[facility] Disclaimer: The information contained in this section may have been updated after the patient was seen, as this information can be updated by other users. Medical History COVID-19 Back pain Alpha thalassaemia minor Hidradenitis suppurativa of multiple sites Cardiac abnormality Hypertension Surgical History History of tubal ligation [place] teeth extracted Family History Family/Other PVCs (premature ventricular contractions) Congestive heart failure Hypertension Diabetes Coronary artery disease Thyroid disorder Kidney disease Social History Smoking Status: Former smoker alcohol intake: current alcohol intake frequency: a few times a week substance use type: denies use current occupational status: other Travel in the last 8 weeks?: None PM Subjective & Objective Subjective Subjective:: Patient is a pleasant 59-year-old female who presents today for medication refill and follow-up. She rates her pain today as 7 out of 10. She denies any new trauma or injury. She does state it is still all across her low back more p rominent on the right side and that she does continue to have leg symptoms that do seem to wake her up in the middle of the night. Patient did previously have a L5-S1 epidural back in March that did provide 50% relief however did not seem to last as long. She denies any other changes. She is currently managed with methocarbamol 500 mg twice a day, ropinirole 0.5 mg at bedtime and compounded cream. She denies any side effects. Patient does state that she feels like the ropinirole does help however it does not last throughout the night but she does typically take it much earlier because she has to separate it from her stomach medication. Her Grabiel has been reviewed and is appropriate. Review of Systems: General: No recent weight changes, no fever, no sleep disturbances Respiratory: No cough, no shortness of air, no recurring pulmonary infections Cardiovascular/peripheral vascular: No chest pain, no palpitations, no edema, no shortness of breath Gastrointestinal: No new onset incontinence, normal bowel movements reported Genitourinary: No new onset incontinence Musculoskeletal: Low back pain, leg cramping Psychiatric: [Normal mood/affect] Neurological: [Denies weakness in extremities], [denies balance issues] Pain at rest (0-10 scale): 7 Objective Objective:: Physical Exam: General: Alert and oriented x3, no acute distress, pleasant and cooperative Lungs: Respirations even and unlabored, symmetrical chest expansion Eyes: PERRL Musculoskeletal: Flexion and extension of lumbar [spine] somewhat guarded secondary to pain, [antalgic gait noted] Neurological: Speech clear, no gross sensory deficit Has patient had previous pain injection?: No Conservative treatment options previously tried: Home exercise plan Length of treatment: Longer than 12 weeks Meds Home Medications and Allergies Home Medications ?Medication ?Instructions ?Recorded ?Confirmed ?Type multivitamin with minerals-folic 0.4 tab PO DAILY SUPP LIMENT 07/27/23 05/18/25 History acid 0.4 mg tablet (One Daily Womens 50 Plus) ondansetron HCl 4 mg tablet 4 mg PO Q8H PRN nausea and 05/27/24 05/18/25 Rx vomiting #30 tabs docusate sodium 100 mg capsule 300 mg PO HS 12/12/24 0 05/18/25 History lisinopril 5 mg tablet 5 mg PO DAILY #90 tabs 12/3005/18/25 Rx methocarbamol 500 mg tablet 500 mg PO BID #60 tabs 07/0905/18/25 Rx omeprazole 20 mg capsule,delayed 20 mg PO .qotherday 0 02/18/25 05/18/25 History release magnesium glycinate 100 mg PO DIRECTED 05/18/25 History ropinirole 0.5 mg tablet 0.5 mg PO HS #30 tabs 05/18/25 Rx trazodone 100 mg tablet See Rx Instructions .Route 0 04/20/25 05/18/25 Rx .COMPLEX #30 tabs semaglutide (weight loss) 1 mg/0.5 1 mg (0.5 mL) SQ WE EKLY 30 days 05/08/25 05/18/25 Rx mL subcutaneous pen injector #2.5 mL atenolol 50 mg tablet See Rx Instructions .Route 0 05/12/25 05/18/25 Rx .COMPLEX #90 tabs New Prescriptions to Start Prescriptions: Allergies Allergy/AdvReac Type Severity Reaction Status Date / Time bacitracin (From Neosporin Allergy Verified 05/08/25 10:53 ([id number])) diphenhydramine (From Allergy Verified 05/08/25 10:53 Benadryl) neomycin (From Neosporin Allergy Verified 05/08/25 10:53 ([id number])) polymyxin B (From Neosporin Allergy Verified 05/08/25 10:53 ([id number])) prochlorperazine (From Allergy Verified 05/08/25 10:53 Compazine) promethazine (From Phenergan) Allergy Verified 05/08/25 10:53 tetracycline Allergy Verified 05/08/25 10:53 metals AdvReac Uncoded 05/08/25 10:53 Assessment and Plan *Assessment and plan (1) Lumbar facet arthropathy: Status: Acute Category: Medical Code(s): M47.816 - Spondylosis without myelopathy or radiculopathy, lumbar region (2) Bilateral sacroiliitis: Status: Acute Category: Medical Code(s): M46.1 - Sacroiliitis, not elsewhere classified (3) Lumbar radiculopathy: Status: Acute Category: Medical Code(s): M54.16 - Radiculopathy, lumbar region (4) Lumbar spinal stenosis: Status: Acute Qualifiers: Neurogenic claudication status: with neurogenic claudication Qualified Code(s): M48.062 - Spinal stenosis, lumbar region with neurogenic claudication Category: Medical Code(s): M48.061 - Spinal stenosis, lumbar region without neurogenic claudication Plan I did discuss regarding her medications that she could take for stomach medication first and wait closer to her bedtime to try the propranolol and see if that does provide longer coverage. We did also discuss the possibility of increasing the dosage in future. I will refill her methocarbamol and ropinirole and provide a 1 month supply of these medications. We will also send in a prescription of lidocaine 5% patches. Patient was counseled that to check the cost before she proceeds forward with the order and that 4% lidocaine patches are available [id number] if the 5% are too expensive. Patient agrees with this plan of care. Patient will return to clinic in 1 month. Patient has been instructed to contact the clinic with any concerns before the next appointment. Dr. Mccormick has reviewed this note and agrees with this plan of care. This note was dictated using voice recognition software and make contain errors or omissions. All injections are used with Lidocaine, Bupivacaine and dexamethasone. Occasionally urine drug screen is needed to verify patient's compliance with our office pain contract. This is ordered based off specific treatments related to chronic pain with the potential to abuse certain medications.
== END 2025-05-18 23:59 | disposition home or self-care (01) ==
PROVIDERS: PCP Nurse Practitioner Family; Visit Provider Nurse Practitioner Family
DX: M48.062 Spinal stenosis, lumbar region with neurogenic claudication (principal); M47.816 Spondylosis without myelopathy or radiculopathy, lumbar region; M46.1 Sacroiliitis, not elsewhere classified; Z79.899 Other long term (current) drug therapy
CPT/HCPCS: 99212; G0463

== ENCOUNTER 2025-05-25 14:00 | Outpatient (CLI) | payer BC, SELFPAY ==
--- NOTE | 2025-05-25 14:30 | MR_ITS ---
FINAL REPORT TECHNIQUE: Multiplanar MR imaging of the left humerus was obtained without contrast. CLINICAL HISTORY: lump of left upper arm, bb marker placed at a knot, pain at knot FINDINGS: Bones are unremarkable without marrow edema, fracture or pathologic marrow replacement. Signal intensity within the muscular structures is normal. Subcutaneous tissues are unremarkable. There is no subcutaneous mass seen deep to a marker placed at the area of interest. IMPRESSION: No discrete soft tissue mass at area of interest. Reviewed, Interpreted and Dictated by Cindy Ku MD Transcribed by Tara Bernard Authenticated and . [facility]
== END 2025-05-25 23:59 | disposition home or self-care (01) ==
LOC: RAD 14:00
PROVIDERS: PCP Nurse Practitioner Family; Visit Provider Nurse Practitioner Family
DX: R22.32 Localized swelling, mass and lump, left upper limb (principal)
CPT/HCPCS: 73218

== ENCOUNTER 2025-06-17 11:19 | Outpatient (CLI) | payer BC, SELFPAY ==
--- NOTE | 2025-06-17 11:23 | XR_ITS ---
FINAL REPORT CLINICAL HISTORY: left humerus pain FINDINGS: LEFT HUMERUS Three views were obtained. There is no fracture or dislocation. The joint spaces appear normal. No soft tissue abnormality is identified. IMPRESSION: No acute process. Reviewed, Interpreted and Dictated by Guy Jules MD Transcribed by Valerie Lawson Authenticated and [facility]
== END 2025-06-17 23:59 | disposition home or self-care (01) ==
LOC: RAD 11:20
PROVIDERS: PCP Nurse Practitioner Family; Visit Provider Physician Assistant
DX: M89.8X2 Other specified disorders of bone, upper arm (principal); R22.32 Localized swelling, mass and lump, left upper limb
CPT/HCPCS: 73060

== ENCOUNTER 2025-07-03 09:47 | Outpatient (RCR) | payer BC, SELFPAY | END 2025-07-03 23:59 | disposition home or self-care (01) | LOC: OT 09:47 | PROVIDERS: Visit Provider Physician Assistant | DX: R22.32 Localized swelling, mass and lump, left upper limb (principal) | CPT/HCPCS: 97165 ==

== ENCOUNTER 2025-07-17 09:48 | Outpatient (RCR) | payer BC, SELFPAY | END 2025-07-17 23:59 | disposition home or self-care (01) | LOC: OT 09:48 | PROVIDERS: Visit Provider Physician Assistant | DX: R22.32 Localized swelling, mass and lump, left upper limb (principal) | CPT/HCPCS: 97032; 97110; 97140; 97530 ==

== ENCOUNTER 2025-07-28 09:55 | Day surgery (SDC) | payer BC, SELFPAY ==
[2025-07-28 10:06] VITALS: BP 120/68; PULSE 77; RESP 18; O2SAT 98; BMI 36.3
--- NOTE | 2025-07-28 10:18 | P.PCN_ITS ---
Procedure Date: 07/28/25 Time: 10:10 Anesthesiologist:: Ari Rutherford CRNA Complications:: None Pre-procedure Diagnosis:: Degenerative disc lumbar spine multilevels. Lumbar radiculopathy. Post-procedure Diagnosis:: Same. Indications for Procedure:: Patient is a very pleasant 59-year-old female who comes our clinic today for lumbar epidural steroid injection. Patient describes low lumbar back pain as constant, dull, aching. Patient also reports bilateral hip and leg radicular sy mptoms at times. She rates her pain today 7/10. Procedure Details:: Procedure: Lumbar epidural steroid injection under fluoroscopy Informed consent was obtained and the risks and benefits of the procedure were explained to the patient. The patient was taken to the procedure room and noninvasive monitors placed, including noninvasive blood pressure cuff and pulse oximeter. The back was viewed using C-arm Fluoroscopy and prepped using Chloraprep as a cleansing solution and the L5-S1 interspace was palpated. Skin and subcutaneous tissues were anesthetized using lidocaine 1.5% and a 25-gauge needle. After this, an 18-gauge Touhy epidural needle was placed into the L5-S1 interspace and advanced using fluoroscopic guidance and loss of resistance to air until the epidural space was encountered. After confirmation of needle placement in the epidural space, with dye, a solution containing normal saline, 3 mL and dexamethasone 10 mg were incrementally injected into the lumbar epidural space. The patient tolerated the procedure well with no complications. The patient was observed in the Pain Clinic and then discharged home neurologically intact. Plan and Disposition:: Patient was discharged without incident.
[2025-07-28 10:24] VITALS: BP 126/83; PULSE 75; RESP 18; O2SAT 97
[2025-07-28] MEDS: DEXAMETHASONE 10MG/ML 1ML VIAL 10 MG (10:24)
[2025-07-28 10:25] VITALS: BP 126/83; PULSE 75; RESP 18; O2SAT 97
[2025-07-28 10:30] VITALS: BP 118/58; PULSE 70; RESP 18; O2SAT 96
== END 2025-07-28 10:30 | disposition home or self-care (01) ==
PROVIDERS: PCP Nurse Practitioner Family; Visit Provider Nurse Anesthetist, Certified Registered
DX: M51.16 Intervertebral disc disorders with radiculopathy, lumbar region (principal); I10 Essential (primary) hypertension; G25.81 Restless legs syndrome; K21.9 Gastro-esophageal reflux disease without esophagitis; Z87.891 Personal history of nicotine dependence; Z88.1 Allergy status to other antibiotic agents; Z88.8 Allergy status to other drugs, medicaments and biological substances; Z91.09 Other allergy status, other than to drugs and biological substances; Z79.899 Other long term (current) drug therapy
CPT/HCPCS: 62323; J1100